=== PATIENT | female | born 1960 | race Caucasian/White ===

== ENCOUNTER 2020-06-12 08:36 | Outpatient (REF) | payer OTHER, SELFPAY ==
--- NOTE | 2020-06-12 08:41 | MM_ITS ---
EXAMINATION: MM SCREENING DIGITAL BREAST TOMOSYNTHESIS, BILATERAL CLINICAL INFORMATION: Screening. Asymptomatic. No prior breast surgery. The lifetime risk of breast cancer based on the Tyrer-Cuzick Model is 6%. COMPARISON: Mammography: 10/14/2018, 08/24/2017, 08/03/2016, 07/31/2015, 03/16/2014, 08/21/2011, 02/01/2011 TECHNIQUE: Digital breast tomosynthesis is performed in both the craniocaudal and mediolateral oblique views along with computer-aided detection (CAD). Synthesized 2D images are generated from the tomosynthesis. FINDINGS: There are scattered areas of fibroglandular density (ACR BI-RADS breast composition Category b). Parenchymal pattern is similar to multiple prior exams. There is stable parenchymal asymmetry mid outer left breast without developing density. Neither breast shows interval mass or architectural abnormality or abnormal calcifications. The axilla and skin contours are unremarkable. MM/MM tomosynthesis screening BI IMPRESSION: No significant changes from prior studies. ASSESSMENT: BI-RADS 2: Benign RECOMMENDATION: Routine annual mammography screening. This patient's information was entered into a reminder system with a target due date for their next mammogram.
== END 2020-06-12 08:37 | disposition home or self-care (01) ==
LOC: HO.MAMMO 08:36
PROVIDERS: PCP Internal Medicine; Visit Provider Internal Medicine
DX: Z12.31 Encounter for screening mammogram for malignant neoplasm of breast (principal)
CPT/HCPCS: 77063; 77067

== ENCOUNTER 2021-06-18 08:22 | Outpatient (REF) | payer OTHER, SELFPAY ==
--- NOTE | ~2021-06-18 | MM_ITS ---
EXAMINATION: MM SCREENING DIGITAL BREAST TOMOSYNTHESIS, BILATERAL CLINICAL INFORMATION: Screening. Asymptomatic. No known family history breast cancer. The lifetime risk of breast cancer based on the Tyrer-Cuzick Model is 5%. COMPARISON: Mammography: 06/12/2020, 10/14/2018, 08/24/2017, 08/03/2016, 07/31/2015, 03/16/2014, 02/08/2013, 08/21/2011. TECHNIQUE: Digital breast tomosynthesis is performed in both the craniocaudal and mediolateral oblique views along with computer-aided detection (CAD). Synthesized 2D images are generated from the tomosynthesis. FINDINGS: There are scattered areas of fibroglandular density (ACR BI-RADS breast composition Category b). Parenchymal pattern is similar to prior exams. Parenchymal asymmetry central upper outer left breast is similar to multiple prior studies. There is no developing density or interval mass or interval architectural change. No abnormal calcifications. The axilla and skin contours are unremarkable. No significant changes. MM/MM tomosynthesis screening BI IMPRESSION: No significant changes from prior studies. ASSESSMENT: BI-RADS 2: Benign RECOMMENDATION: Routine annual mammography screening. This patient's information was entered into a reminder system with a target due date for their next mammogram.
== END 2021-06-18 08:23 | disposition home or self-care (01) ==
LOC: HO.MAMMO 08:22
PROVIDERS: PCP Internal Medicine; Visit Provider Internal Medicine
DX: Z12.31 Encounter for screening mammogram for malignant neoplasm of breast (principal)
CPT/HCPCS: 77063; 77067

== ENCOUNTER 2022-06-24 09:35 | Outpatient (REF) | payer OTHER, SELFPAY ==
--- NOTE | ~2022-06-24 | MM_ITS ---
EXAMINATION: MM SCREENING DIGITAL BREAST TOMOSYNTHESIS, BILATERAL CLINICAL INFORMATION: Screening. Asymptomatic. The lifetime risk of breast cancer based on the Tyrer-Cuzick Model is 6%. COMPARISON: Mammography: 06/18/2021, 06/12/2020, 10/14/2018, 08/24/2017, 08/03/2016 TECHNIQUE: Digital breast tomosynthesis is performed in both the craniocaudal and mediolateral oblique views along with computer-aided detection (CAD). Synthesized 2D images are generated from the tomosynthesis. FINDINGS: There are scattered areas of fibroglandular density (ACR BI-RADS breast composition Category b). Parenchymal pattern is similar to prior studies. Parenchymal asymmetry mid upper outer left breast is similar to the prior exams. There is no interval mass or developing density or architectural changes. No abnormal calcific lesions. Skin contours are smooth. The axilla are unremarkable. MM/MM tomosynthesis screening BI IMPRESSION: No significant changes from prior exams. ASSESSMENT: BI-RADS 2: Benign RECOMMENDATION: Routine annual mammography screening. This patient's information was entered into a reminder system with a target due date for their next mammogram.
== END 2022-06-24 09:36 | disposition home or self-care (01) ==
LOC: HO.MAMMO 09:35
PROVIDERS: PCP Internal Medicine; Visit Provider Internal Medicine
DX: Z12.31 Encounter for screening mammogram for malignant neoplasm of breast (principal)
CPT/HCPCS: 77063; 77067

== ENCOUNTER 2023-05-11 09:42 | Day surgery (SDC) | payer OTHER, SELFPAY ==
[2023-05-09 14:13] VITALS: BMI 38.8
--- NOTE | 2023-05-10 12:21 | P.CONAN_ITS ---
Documented by User: Lori De La Rosa NP 05/10/23 12:22 HPI - Anesthesia Eval Consult details Narrative: 63yo F for Upper Endoscopy and Colonoscopy ASD s/p repair 1992 [facility] Past Medical History Medical History ASD (atrial septal defect) Elevated cholesterol HTN (hypertension) GERD (gastroesophageal reflux disease) Surgical History Surgical History Hx of atrial septal defect repair H/O colonoscopy Social History Social History Patient Tobacco Use Status: Former Tobacco user Quit Date: >5 years ago Tobacco use type: Cigarette Advance Directives: No Advance Directives Information Provided: Yes Meds Allergies Allergy/AdvReac Type Severity Reaction Status Date / Time No Known Allergies Allergy Verified 05/09/23 14:12 Home Medications Medication Instructions Recorded Confirmed Last Taken Type amlodipine 10 mg tablet 10 mg PO DAILY 05/09/23 05/09/23 Unknown History atorvastatin 40 mg tablet 40 mg PO BEDTIME 05/09/23 05/09/23 Unknown History fluticasone propionate 50 1 spray intranasal BID 05/09/23 05/09/23 Unknown History mcg/actuation nasal spray,suspension lisinopril 30 mg tablet 30 mg PO DAILY 05/09/23 05/09/23 Unknown History sertraline 50 mg tablet 50 mg PO DAILY 05/09/23 05/09/23 Unknown History Exam Height,Weight and Vital Signs: Height 5 ft 0.5 in Weight 91.626 kg Assessment and Plan Assessment Anesthesia Assessment: Chart Reviewed Documented by User: Josy Mayorga MD 05/11/23 10:14 [facility] Past Medical History Medical History ASD (atrial septal defect) Elevated cholesterol HTN (hypertension) GERD (gastroesophageal reflux disease) Family History Family history of problems with anesthesia: No Surgical History Surgical History Hx of atrial septal defect repair H/O colonoscopy History of Problems with Anesthesia: No Social History Social History Patient Tobacco Use Status: Former Tobacco user Quit Date: >5 years ago Tobacco use type: Cigarette Advance Directives: No Advance Directives Information Provided: Yes Meds Allergies Allergy/AdvReac Type Severity Reaction Status Date / Time No Known Allergies Allergy Verified 05/09/23 14:12 Home Medications Medication Instructions Recorded Confirmed Last Taken Type amlodipine 10 mg tablet 10 mg PO DAILY 05/09/23 05/09/23 Unknown History atorvastatin 40 mg tablet 40 mg PO BEDTIME 05/09/23 05/09/23 Unknown History fluticasone propionate 50 1 spray intranasal BID 05/09/23 05/09/23 Unknown History mcg/actuation nasal spray,suspension lisinopril 30 mg tablet 30 mg PO DAILY 05/09/23 05/09/23 Unknown History sertraline 50 mg tablet 50 mg PO DAILY 05/09/23 05/09/23 Unknown History Exam Airway Mallampati Class: II TM Dist: >3cm Neck ROM: Full Heart: rrr Lungs: cta Assessment and Plan Assessment Anesthesia Assessment: Anesthesia Plan Discussed Final Anesthetic Review Family History of Problems with Anesthesia: No History of Problems with Anesthesia: No NPO: Yes ASA Class: III Final Preanesthetic Review: No Changes in Pt Med Stat, Meds/Allgs Chart Reviewed, Consent Obtained/Reviewed and Anes Risks/Benef Reviewed Patient Risk: Intermediate Procedure Risk: Intermediate Anesthetic Plan Anesthetic Plan: MAC: Disposition: Standard PACU
[2023-05-11 10:15] VITALS: BP 113/73; PULSE 85; RESP 16; TEMP 36.6; O2SAT 97
[2023-05-11] MEDS: Lactated Ringers 1,000 ML 100 ML IVCONT (10:27)
--- NOTE | 2023-05-11 10:31 | P.HPSUR_ITS ---
Pre-Procedural Eval Section A Date of Service: 05/11/23 Section B Chief Complaint: Gastro-esophageal reflux disease without esophagit Details of Present Illness: see H&P no changes Relevant Family History (Specify if Yes): No Relevant Social History: None Present Medications: see Short Stay Collaborative assessment Medical History: No relevant PMH History of Previous Operations: No relevant previous surgery Allergies: Allergies Allergy/AdvReac Type Severity Reaction Status Date / Time No Known Allergies Allergy Verified 05/09/23 14:12 Review of Systems Sugical H&P ROS: Negative: Constitution, Cardiovascular, Respiratory, Neurol ogical, Psychiatric, Hem-Onc, Allergic/Immunologic, Gastrointestinal, Genitourinary, Musculoskeletal, Integumentary, Endocrine and Eyes/Ears/Nose/Throat Exam Surgical H&P Exam: Normal: HEENT, Normal: Heart, Normal: Lungs, Normal: Extremities, Normal: Abdomen, Normal: Skin and Normal: Neurological Plan Diagnosis/Plan: Unchanged I have reviewed the history and physical and performed a pertinent physical examination on my patient. No changes have occurred unless specified. Time Spent With Patient Time: Total time managing care of this patient today ____ minutes.
[2023-05-11 11:18] VITALS: BP 95/58; PULSE 73; RESP 18; TEMP 36.3; O2SAT 98
[2023-05-11 11:33] VITALS: BP 123/69; PULSE 67; RESP 18; TEMP 36.8; O2SAT 98
--- NOTE | 2023-05-11 11:37 | OP_ITS ---
DATE OF SERVICE: 05/11/2023 SURGEON: Franklyn Browning MD INDICATIONS: 1. Gastroesophageal reflux disease. 2. Colon cancer screening. PREOPERATIVE DIAGNOSIS: POSTOPERATIVE DIAGNOSIS: PROCEDURE PERFORMED: Upper endoscopy with biopsy, colonoscopy to the cecum with biopsy and snare polypectomy. ESTIMATED BLOOD LOSS: COMPLICATIONS: ANESTHESIA: Monitored anesthesia care. ASSISTANTS: SPECIMENS: DESCRIPTION OF PROCEDURE: A history and physical was performed. The risks and benefits of the procedure were explained to the patient. Informed consent was obtained. The patient was placed in the left lateral decubitus position. The Olympus video gastroscope was introduced into the esophagus, stomach, and duodenum. Examination was performed. The scope was removed. She tolerated the procedure well and was repositioned for colonoscopy. Digital rectal exam was performed and was found to be normal. The Olympus pediatric video colonoscope was introduced into the rectum and advanced to the cecum. The cecum was identified by transillumination, palpation, and identification of ileocecal valve. Examination was performed. The scope was removed. She tolerated both procedures well and was returned to the recovery area in stable condition. FINDINGS: Upper endoscopy: 1. Esophagus: There was a 15 mm ulceration in the distal esophagus with some associated changes suspicious for Reyes's esophagus and some mild nodularity. Biopsies were obtained from the abnormal mucosa. There was a hiatal hernia. 2. Stomach: The stomach showed no evidence of masses, ulcers, or polyps. Antral biopsies were obtained to evaluate for H pylori. 3. Duodenal: Bulb and 2nd portion were normal. Colonoscopy: The terminal ileum was not examined. The visualized colonic mucosa was normal without evidence of masses or ulcers. At 60 cm, a less than 5 mm sessile polyp, which was removed with the biopsy forceps. At 40 cm was a 5 mm polyp, which was removed with a cold snare and recovered via suction. Retroflexed examination showed internal hemorrhoids. IMPRESSION: 1. Erosive esophagitis. 2. Hiatal hernia. 3. Colon polyps. RECOMMENDATION: Follow up the biopsy results. MD JOSE Amado/LEVON / [id number]
== END 2023-05-11 12:15 | disposition home or self-care (01) ==
PROVIDERS: PCP Internal Medicine; Visit Provider Internal Medicine Gastroenterology
PROC: (CPT 43239; principal; 2023-05-11 13:50)
DX: K22.10 Ulcer of esophagus without bleeding (principal); K44.9 Diaphragmatic hernia without obstruction or gangrene; K21.9 Gastro-esophageal reflux disease without esophagitis; Z12.11 Encounter for screening for malignant neoplasm of colon; K63.5 Polyp of colon; K64.8 Other hemorrhoids; I10 Essential (primary) hypertension; E78.5 Hyperlipidemia, unspecified; Z87.891 Personal history of nicotine dependence; Z79.02 Long term (current) use of antithrombotics/antiplatelets; Z79.899 Other long term (current) drug therapy
CPT/HCPCS: 43239; 45385; 45380; 88305; 88312; 88342; J2704

== ENCOUNTER 2023-06-30 09:32 | Outpatient (REF) | payer OTHER, SELFPAY ==
--- NOTE | ~2023-06-30 | MM_ITS ---
EXAMINATION: MM SCREENING DIGITAL BREAST TOMOSYNTHESIS, BILATERAL CLINICAL INFORMATION: Screening. Asymptomatic. COMPARISON: Mammography: This study is compared with prior exams dating back to 2017. TECHNIQUE: Digital breast tomosynthesis is performed in both the craniocaudal and mediolateral oblique views along with computer-aided detection (CAD). Synthesized 2D images are generated from the tomosynthesis. FINDINGS: There are scattered areas of fibroglandular density (ACR BI-RADS breast composition Category b). There is a focal asymmetry in the upper outer quadrant of the left breast. Additional mammographic and targeted sonographic evaluation of this finding are advised. In the right breast, there are no significant masses, abnormal calcifications, or other abnormalities. MM/MM tomosynthesis screening BI IMPRESSION: Focal asymmetry of the left breast upper outer quadrant warrants additional mammographic and targeted sonographic imaging. No mammographic signs of malignancy right breast. ASSESSMENT: BI-RADS BI-RADS 0 - Incomplete: Needs additional Imaging. RECOMMENDATION: 1. Additional views of the left breast 2. Targeted ultrasound if warranted after review of the additional views. 3. Radiology department staff will contact the patient for additional imaging. Additional Imaging required This examination should not preclude the clinical evaluation of a suspicious palpable abnormality. This patient's information was entered into a reminder system with a target due date for their next mammogram.
== END 2023-06-30 09:33 | disposition home or self-care (01) ==
LOC: HO.MAMMO 09:32
PROVIDERS: PCP Internal Medicine; Visit Provider Internal Medicine
DX: Z12.31 Encounter for screening mammogram for malignant neoplasm of breast (principal)
CPT/HCPCS: 77063; 77067

== ENCOUNTER → 2023-06-30 09:45 | Outpatient (BNV) | payer OTHER, SELFPAY | PROVIDERS: PCP Internal Medicine; Visit Provider Radiology Diagnostic Radiology | DX: Z12.31 Encounter for screening mammogram for malignant neoplasm of breast (principal) | CPT/HCPCS: 77063; 77067 ==

== ENCOUNTER 2023-08-17 14:19 | Outpatient (REF) | payer OTHER, SELFPAY ==
--- NOTE | ~2023-08-17 | MM_ITS ---
EXAMINATION: MM DIAGNOSTIC DIGITAL BREAST TOMOSYNTHESIS, LEFT CLINICAL INFORMATION: Evaluate focal asymmetry left breast upper outer quadrant seen on screening exam. COMPARISON: Mammography: 06/30/2023, 06/16/2022, 06/18/2021, and exams dating back to 02/01/2011. TECHNIQUE: Digital breast tomosynthesis is performed. 2D images are generated from the tomosynthesis. The following views are obtained: Full-field left views obtained. 3-D mediolateral view, and spot compression 3-D left CC x2, and left MLO x1. FINDINGS: There are scattered areas of fibroglandular density (ACR BI-RADS breast composition Category b). Additional diagnostic views show mild persistence of the focal asymmetry, as does the full-field left mediolateral view. Of note, when compared with nearly every study dating back to 2010, there has been no change in this focal asymmetry, and it has been worked up several times including in 2010, and 2020. This is a benign abnormality and no further follow-up is recommended. Otherwise, no suspicious calcifications, developing masses, or developing regions of architectural distortion are identified within the left breast. No skin or axillary abnormality identified. MM/MM tomosynthesis added views L IMPRESSION: No evidence of malignancy in the left breast. Focal asymmetry in the upper outer left breast is benign, and has been stable since 2011 exams. This is felt to represent a benign island of breast parenchyma. Recommend the patient return to routine annual screening to include both breasts. ASSESSMENT: BI-RADS BI-RADS 2 - Benign Findings RECOMMENDATION: 1 year F/U Results were provided to the patient at time of visit by the technologist. This patient's information was entered into a reminder system with a target due date for their next mammogram.
== END 2023-08-17 14:20 | disposition home or self-care (01) ==
LOC: HO.MAMMO 14:19
PROVIDERS: PCP Internal Medicine; Visit Provider Internal Medicine
DX: N64.89 Other specified disorders of breast (principal)
CPT/HCPCS: 77061; 77065

== ENCOUNTER → 2023-08-17 14:30 | Outpatient (BNV) | payer OTHER, SELFPAY | PROVIDERS: PCP Internal Medicine; Visit Provider Radiology Diagnostic Radiology | DX: N64.2 Atrophy of breast (principal) | CPT/HCPCS: 77061; 77065 ==

== ENCOUNTER 2024-05-15 11:06 | Outpatient (REF) | payer OTHER, SELFPAY ==
--- OUTSIDE RECORDS SUMMARY | 2024-05-16 11:19 | XMS_ITS | Patient Health Record ---
Author Organization [facility] Address [address] [place] [address] Care Team Providers Care Benzene Operator Name Role Phone Racheal Ponce Primary Care [...] HCl 50 MG TAKE 1 TABLET BY [facility] ONCE DAILY Oral for 90 Active Omeprazole [...] Problem Colon cancer screening (Z12.11) Active confirmed [id number] Problem Erosive esophagitis (K22.10) Active confirmed Erosive esophagitis (51670563) Problem Gastroesophageal reflux disease, unspecified whether esophagitis present (K21.9) Active confirmed [id number] Encounters Encounter Location Date Provider Diagnosis [facility] [place] Outpatient [address] [place], [place] [phone] 08/17/2023 Franklyn Browning Jr [facility] [address] [place] [address] 05/16/2023 Franklyn Browning Jr [facility] [address] [place] [address] 06/18/2023 Franklyn Browning Jr PLAN OF TREATMENT Future Test Test Name Order Date COLONOSCOPY 12/11/2012 UPPER GI ENDOSCOPY ANY OTHER TECHNIQUE 1 06/05/2022 COLONOSCOPY 04/05/2023 Insurance Providers Payer Name Payer Address Payer Phone Subscriber Number Group Number Insured Name Patient Relationship to Insured Coverage Start Date Coverage End Date [facility] [address] [place] [phone] [id number] KYREE MCKENNA Self - patient is the insured MEDICAL (GENERAL) HISTORY Medical History History ICD Code Hypertension Hyperlipidemia Gastroesophageal reflux disease Colonoscopy 02/07 hyperplastic polyp, ten -year followup. Surgical History Surgery Date(Month/Year) repair of septal defect (? ASD) 1992 knee replacement left
--- OUTSIDE RECORDS SUMMARY | 2024-05-16 11:19 | XMS_ITS ---
Author Organization [facility] Address [address] [place] [address] Care Team Providers Care Client Advisor Name Role Phone Racheal Ponce Primary Care Provider Unavailab Franklyn Anand Jr Unavailable [phone] Encounters Encounter Location Date Provider Diagnosis [facility] Outpatient [address] [place] [phone] 08/17/2023 Franklyn Browning Jr PLAN OF TREATMENT No Information
--- OUTSIDE RECORDS SUMMARY | 2024-05-16 11:19 | XMS_ITS ---
Author Organization [facility] Address [address] [place] [address] Care Team Providers Care Air Analyst Name Role Phone Racheal Ponce Primary Care Provider Unavailab Franklyn Anand Jr Unavailable REASON FOR VISIT pathology Encounters Encounter Location Date Provider Diagnosis [facility] [address] [place] [phone] 05/16/2023 Franklyn Browning Jr PLAN OF TREATMENT No Information
--- OUTSIDE RECORDS SUMMARY | 2024-05-16 11:19 | XMS_ITS ---
Author Organization [facility] Address [address] [place] [address] Care Team Providers Care Cover Creaser Name Role Phone Racheal Ponce Primary Care Provider Unavailab Franklyn Anand Jr Unavailable [phone] REASON FOR VISIT cancel procedure Encounters Encounter Location Date Provider Diagnosis [facility] [address] [place] [address] 06/18/2023 Franklyn Browning Jr PLAN OF TREATMENT No Information
== END 2024-05-15 11:07 | disposition home or self-care (01) ==
LOC: HO.HOSX 11:06
PROVIDERS: Visit Provider Orthopaedic Surgery
DX: M25.512 Pain in left shoulder (principal); M75.42 Impingement syndrome of left shoulder
CPT/HCPCS: 20610; 73030; J1010; J2003

== ENCOUNTER 2024-05-15 13:50 | Outpatient (AMB) | payer OTHER, SELFPAY ==
--- OUTSIDE RECORDS SUMMARY | 2024-05-15 13:52 | XMS_ITS ---
Author Organization [facility] Address [address] [place] [phone] Care Team Providers Care Repairer Wood Furniture Name Role Phone Racheal Ponce Primary Care Provider Unavailab Franklyn Anand Jr Unavailable [phone] REASON FOR VISIT pathology Encounters Encounter Location Date Provider Diagnosis [facility] [address] [place] [phone] 05/16/2023 Franklyn Browning Jr PLAN OF TREATMENT No Information
--- OUTSIDE RECORDS SUMMARY | 2024-05-15 13:52 | XMS_ITS ---
Author Organization [facility] Address [address] [place] [phone] Care Team Providers Care Territory Account Executive Name Role Phone Racheal Ponce Primary Care Provider Unavailab Franklyn Anand Jr Unavailable [phone] Encounters Encounter Location Date Provider Diagnosis [facility] Out[place] [address] [place] [phone] 08/17/2023 Franklyn Browning Jr PLAN OF TREATMENT No Information
--- OUTSIDE RECORDS SUMMARY | 2024-05-15 13:52 | XMS_ITS | Patient Health Record ---
Author Organization [facility] Address [address] [place] [phone] Care Team Providers Care Raw Stock Machine Feeder Name Role Phone Racheal Ponce Primary Care Provider UnavailFranklyn Lane Jr Unavailable ALLERGIES No Known Allergies REASON FOR REFERRAL No Information MEDICATIONS Medication SIG (Take, Route, Frequency, Duration) Notes Start Date End Date Status Flonase 50 MCG/DOSE 1 spray in each nost ril Nasally Once a day for 30 day(s) Active amLODIPine Besylate 5mg Active MiraLax (colon prep) 17 GM/SCOOP mixed with Gatorade or Crystal Light Orally begin at 5:00 p.m. the day before the procedure for 1 day 04/05/2023 Active Lisinopril 30 MG Oral for 90 A ctive Atorvastatin Calcium 40mg Active Sertraline HCl 50 MG TAKE 1 TABLET BY [facility] ONCE DAILY Oral for 90 Active Omeprazole 20 MG 1 capsule 30 minutes before morning meal Orally Once a day for 30 day(s) 05/11/2023 Active SOCIAL HISTORY Tobacco Use: Social History Observation Description Date Details (start date - stop date) Former Smoker NA - NA Sex Assigned At : Social History Observation Description Sex Assigned At Unknown Tobacco Use/Smoking Question Answer Notes Patient is a former smoker How long has it been since you last smoked? 5-10 years PROBLEMS Problem Type ICD Code Onset Dates Problem Status W/U Status Risk SNOMED Code Notes Problem Colon cancer screening (Z12.11) Active confirmed 816133755 Problem Erosive esophagitis (K22.10) Active confirmed Erosive esophagitis (90493675) Problem Gastroesophageal reflux disease, unspecified whether esophagitis present (K21.9) Active confirmed [id number] Encounters Encounter Location Date Provider Diagnosis [facility] [place] [address] [place] [phone] 08/17/2023 Franklyn Browning Jr [facility] [address] [place] [phone] 05/16/2023 Franklyn Browning Jr [facility] [address] [place] [phone] 06/18/2023 Franklyn Browning Jr PLAN OF TREATMENT Future Test Test Name Order Date COLONOSCOPY 12/11/2012 UPPER GI ENDOSCOPY ANY OTHER TECHNIQUE 1 06/05/2022 COLONOSCOPY 04/05/2023 Insurance Providers Payer Name Payer Address Payer Phone Subscriber Number Group Number Insured Name Patient Relationship to Insured Coverage Start Date Coverage End Date [facility] [address] [place] [phone] [id number] KYREE MCKENNA Self - patient is the insured MEDICAL (GENERAL) HISTORY Medical History History ICD Code Hypertension Hyperlipidemia Gastroesophageal reflux disease Colonoscopy 02/07 hyperplastic polyp, ten -year followup. Surgical History Surgery Date(Month/Year) repair of septal defect (? ASD) 1992 knee replacement left
--- OUTSIDE RECORDS SUMMARY | 2024-05-15 13:52 | XMS_ITS ---
Author Organization [facility] Address [address] [place] [phone] Care Team Providers Care Studio Data Analyst Name Role Phone Racheal Ponce Primary Care Provider Unavailab Franklyn Anand Jr Unavailable [phone] REASON FOR VISIT cancel procedure Encounters Encounter Location Date Provider Diagnosis [facility] [address] [place] [phone] 06/18/2023 Franklyn Browning Jr PLAN OF TREATMENT No Information
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
[2024-05-15 14:03] VITALS: BMI 38.8
== END 2024-05-15 14:40 | disposition home or self-care (01) ==
PROVIDERS: PCP Internal Medicine; Visit Provider Orthopaedic Surgery
DX: M75.42 Impingement syndrome of left shoulder (principal)
CPT/HCPCS: 20610; 99203

== ENCOUNTER 2024-07-24 14:36 | Outpatient (AMB) | payer OTHER, SELFPAY ==
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
[2024-07-24 14:42] VITALS: BMI 38.6
--- OUTSIDE RECORDS SUMMARY | 2024-07-24 17:53 | XMS_ITS ---
Author Organization [facility] Address [address] [place] [address] Care Team Providers Care Rehabilitation Coordinator Name Role Phone Racheal Ponce Primary Care Provider Unavailab Franklyn Anand Jr Unavailable [phone] REASON FOR VISIT pathology Encounters Encounter Location Date Provider Diagnosis [facility] [address] [place] [phone] 05/16/2023 Franklyn Browning Jr PLAN OF TREATMENT No Information
--- OUTSIDE RECORDS SUMMARY | 2024-07-24 17:53 | XMS_ITS ---
Author Organization [facility] Address [address] [place] [address] Care Team Providers Care Director Correctional [employer] Name Role Phone Racheal Ponce Primary Care Provider Unavailab Franklyn Anand Jr Unavailable REASON FOR VISIT cancel procedure Encounters Encounter Location Date Provider Diagnosis [facility] [address] [place] [phone] 06/18/2023 Franklyn Browning Jr PLAN OF TREATMENT No Information
--- OUTSIDE RECORDS SUMMARY | 2024-07-24 17:53 | XMS_ITS ---
Author Organization [facility] Address [address] [place] [address] Care Team Providers Care Scalder Name Role Phone Racheal Ponce Primary Care Provider Unavailab Franklyn Anand Jr Unavailable Encounters Encounter Location Date Provider Diagnosis [facility] Outpatient [address] [place] [phone] 08/17/2023 Franklyn Browning Jr PLAN OF TREATMENT No Information
--- OUTSIDE RECORDS SUMMARY | 2024-07-24 17:53 | XMS_ITS | Patient Health Record ---
Author Organization [facility] Address [address] [place] [address] Care Team Providers Care Band Sawing Machine Operator Name Role Phone Racheal Ponce Primary [...] HCl 50 MG TAKE 1 TABLET BY [facility] ONCE DAILY Oral for 90 [...] Problem Colon cancer screening (Z12.11) Active confirmed [id number] Problem Erosive esophagitis (K22.10) Active confirmed Erosive esophagitis (67495530) Problem Gastroesophageal reflux disease, unspecified whether esophagitis present (K21.9) Active confirmed 780059397 Encounters Encounter Location Date Provider Diagnosis [facility] [place] [address] [place], [place] [phone] 08/17/2023 Franklyn Browning Jr PLAN OF TREATMENT Future Test Test Name Order Date COLONOSCOPY 12/11/2012 UPPER GI ENDOSCOPY ANY OTHER TECHNIQUE 1 06/05/2022 COLONOSCOPY 04/05/2023 Insurance Providers Payer Name Payer Address Payer Phone Subscriber Number Group Number Insured Name Patient Relationship to Insured Coverage Start Date Coverage End Date [facility] [address] [place] [phone] [id number] KYREE MCKENNA Self - patient is the insured MEDICAL (GENERAL) HISTORY Medical History History ICD Code Hypertension Hyperlipidemia Gastroesophageal reflux disease Colonoscopy 02/07 hyperplastic polyp, ten -year followup. Surgical History Surgery Date(Month/Year) repair of septal defect (? ASD) 1992 knee replacement left
--- OUTSIDE RECORDS SUMMARY | 2024-07-24 17:53 | XMS_ITS | Clinical Summary ---
Author Organization [address] Address [address] [place] [address] Phone Care Team Providers Care Electrician Office Name Role Phone Racheal Ponce MD Primary Care Provider [phone] Social History Tobacco Use Types Packs/Day Years Used Date Smoking Tobacco: Never Assessed Comments Unknown Sex and Gender Information Value Date Recorded Sex Assigned at Not on file Legal Sex Female 5:55 AM EST Gender Identity Not on file Sexual Orientation Not on file Plan of Treatment Health Maintenance Due Date Last Done Comments Breast Cancer Screening 1960 Cervical Cancer Screening: Pap Smear 1983 Pneumococcal Vaccine: 50+ Years (1 of 1 - PCV) 2012 Colorectal Cancer Screening: Colonoscopy 04/30/2022 Depression Screening 04/30/2022 HIV Screening 04/30/2022 Hepatitis C Screening 04/30/2022 Social Influencers of Health Screening 04/30/2022 COVID-19 Vaccine ( season) 2024 06/20/2023, 06/02/2021, 02/23/2021, Additional history exists Influenza Vaccine (#1) 2024 , 03/16/2021, 02/25/2018 Hypertension/CHF/CAD Annual BMP Blood Test 2025 2024 Cholesterol Screening (Lipid Panel) 2029 2024 DTaP,Tdap,and Td Vaccines (2 - Td or Tdap) 06/30/2032 06/30/2022 Zoster Vaccines Completed 12/16/2021, 10/15/2021 RSV Immunization Patients 60+ Years Old Completed 06/20/2023 HIB Vaccines Aged Out No longer eligi ble based on patient's age to complete this topic HPV Vaccines Aged Out No longer eligi ble based on patient's age to complete this topic Hepatitis A Vaccines Aged Out No long er eligible based on patient's age to complete this topic Hepatitis B Vaccines Aged Out No long er eligible based on patient's age to complete this topic IPV Vaccines Aged Out No longer eligi ble based on patient's age to complete this topic MMR Vaccines Aged Out No longer eligi ble based on patient's age to complete this topic Meningococcal ACWY Vaccine Aged Out N o longer eligible based on patient's age to complete this topic Meningococcal B Vacine Aged Out No lo nger eligible based on patient's age to complete this topic Pneumococcal Vaccine: Pediatrics (0 to 5 Years) and At-Risk Patients (6 to 64 Years) Aged Out No longer eligible based on patient's age to complete this topic RSV Immunization Patients Under 20 months Aged Out No longer eligible based on patient's age to complete this topic Varicella Vaccines Aged Out No longer eligible based on patient's age to complete this topic Procedures Procedure Name Priority Date/Time Associated Diagnosis Comments CBC WITH AUTO DIFFERENTIAL Routine 2024 9:45 AM EST Pure hypercholesterolemi a Major depressive disorder, 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 (CMS/HCC) Hypertension, unspecified type LIPID PANEL WITH REFLEX TO DIRECT LDL Routine 2024 9:45 AM EST Pure hypercholesterolemi a Major depressive disorder, 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 (CMS/HCC) Hypertension, unspecified type COMPREHENSIVE METABOLIC PANEL Routine 2024 9:45 AM EST Pure hypercholesterolemi a Major depressive disorder, 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 (CMS/HCC) Hypertension, unspecified type CBC AND DIFFERENTIAL Routine 2024 9:45 AM EST Pure hypercholesterolemi a Major depressive disorder, 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 (CMS/HCC) Hypertension, unspecified type from Last 3 Months Results * Lipid panel with reflex to direct LDL (2024 9:45 AM EST) [facility] Signature Cholesterol 196 0 - 200 mg/dL LAB CHEMISTRY METHOD 2024 2:44 PM EST [facility] Triglycerides 64 0 - 150 mg/dL LAB CHEMISTRY METHOD 2024 2:44 PM EST [facility] HDL 99 >=40 mg/dL LAB CHEMISTRY METHOD 2024 2:44 PM [facility] LDL Calculated 84 0 - 100 mg/dL LAB CHEMISTRY METHOD 2024 2:44 PM EST [facility] VLDL Cholesterol David 12.8 mg/dL LAB CHEMISTRY METHOD 2024 2:44 PM [facility] Non HDL Chol. (LDL+VLDL) 97 <145 mg/dL LAB CHEMISTRY METHOD 2024 2:44 PM [facility] Chol/HDL Ratio 2.0 0.0 - 4.4 LAB CHEMISTRY METHOD 2024 2:44 PM [facility] Blood Venous blood specimen / Unknown Venipuncture / Unknown 2024 9:45 AM EST 2024 9:45 AM EST us Racheal Ponce MD LAB BLOOD ORDERABLES Final Re sult [facility] [address] [place] [address], [place] [phone] * (ABNORMAL) CBC auto differential (2024 9:45 AM EST) WBC 4.3(L) 4.8 - 10.8 K/mcL LAB HEMETOLOGY METHOD 2024 2:20 PM EST [facility] RBC 4.40 3.80 - 4.80 M/mcL LAB HEMETOLOGY METHOD 2024 2:20 PM [facility] Hemoglobin 12.9 11.5 - 16.0 g/dL LAB HEMETOLOGY METHOD 2024 2:20 PM [facility] Hematocrit 40.5 35.0 - 47.0 % LAB HEMETOLOGY METHOD 2024 2:20 PM [facility] MCV 92.0 79.0 - 98.0 FL LAB HEMETOLOGY METHOD 2024 2:20 PM [facility] MCH 29.3 27.0 - 32.0 pcg LAB HEMETOLOGY METHOD 2024 2:20 PM [facility] MCHC 31.9(L) 32.0 - 37.0 g/dL LAB HEMETOLOGY METHOD 2024 2:20 PM [facility] RDW 14.0 11.0 - 15.0 % LAB HEMETOLOGY METHOD 2024 2:20 PM [facility] Platelets 309 130 - 400 K/mcL LAB HEMETOLOGY METHOD 2024 2:20 PM [facility] MPV 10.5 7.0 - 11.0 FL LAB HEMETOLOGY METHOD 2024 2:20 PM [facility] NRBC 0.0 <1.0 % LAB HEMETOLOGY METHOD 2024 2:20 PM [facility] NRBC Absolute 0.00 <0.10 K/mcL LAB HEMETOLOGY METHOD 2024 2:20 PM [facility] Neutrophils Relative 56.0 % LAB HEMETOLOGY METHOD 2024 2:20 PM [facility] Lymphocytes Relative 26.9 % LAB HEMETOLOGY METHOD 2024 2:20 PM [facility] Monocytes Relative 11.0 % LAB HEMETOLOGY METHOD 2024 2:20 PM [facility] Eosinophils Relative 4.7 % LAB HEMETOLOGY METHOD 2024 2:20 PM [facility] Basophils Relative 0.9 % LAB HEMETOLOGY METHOD 2024 2:20 PM EST [facility] Immature Granulocytes Relative 0.5 % LAB HEMETOLOGY METHOD 2024 2:20 PM EST [facility] Neutrophils Absolute 2.40 1.50 - 7.00 K/mcL LAB HEMETOLOGY METHOD 2024 2:20 PM EST [facility] Lymphocytes Absolute 1.15 1.00 - 5.00 K/mcL LAB HEMETOLOGY METHOD 2024 2:20 PM EST [facility] Monocytes Absolute 0.47 0.20 - 1.00 K/mcL LAB HEMETOLOGY METHOD 2024 2:20 PM EST [facility] Eosinophils Absolute 0.20 0.00 - 0.50 K/mcL LAB HEMETOLOGY METHOD 2024 2:20 PM EST [facility] Basophils Absolute 0.04 0.00 - 0.20 K/mcL LAB HEMETOLOGY METHOD 2024 2:20 PM EST [facility] Immature Granulocytes Absolute 0.02 0.00 - 0.03 K/mcL LAB HEMETOLOGY METHOD 2024 2:20 PM EST [facility] Blood Venous blood specimen / Unknown Venipuncture / Unknown 2024 9:45 AM EST 2024 9:45 AM EST us Racheal Ponce MD LAB BLOOD ORDERABLES Final Re sult [facility] [address] [place] [address], * Comprehensive metabolic panel (2024 9:45 AM EST) Sodium 137 133 - 145 mmol/L LAB CHEMISTRY METHOD 2024 2:43 PM [facility] Potassium 4.5 3.5 - 5.5 mmol/L LAB CHEMISTRY METHOD 2024 2:43 PM [facility] Chloride 106 96 - 110 mmol/L LAB CHEMISTRY METHOD 2024 2:43 PM [facility] CO2 26 21 - 32 mmol/L LAB CHEMISTRY METHOD 2024 2:43 PM [facility] Anion Gap 5 3 - 11 LAB CHEMISTRY METHOD 2024 2:43 PM [facility] Glucose 95 70 - 100 mg/dL LAB CHEMISTRY METHOD 2024 2:43 PM [facility] BUN 24 5 - 25 mg/dL LAB CHEMISTRY METHOD 2024 2:43 PM [facility] Creatinine 0.76 0.50 - 1.10 mg/dL LAB CHEMISTRY METHOD 2024 2:43 PM [facility] eGFR 89 >=60 mL/min/1. 73m2 LAB CHEMISTRY METHOD 2024 2:43 PM [facility] Comment:Calculation based on the??Chronic Kidney Disease Epidemiology Collaboration (CKD-EPI) equation refit??without adjustment for race. BUN/Creatinine Ratio 31.6 LAB CHEMISTRY METHOD 2024 2:43 PM [facility] Calcium 9.8 8.5 - 10.5 mg/dL LAB CHEMISTRY METHOD 2024 2:43 PM [facility] AST (SGOT) 14 10 - 42 unit/L LAB CHEMISTRY METHOD 2024 2:43 PM [facility] ALT (SGPT) 19 10 - 60 unit/L LAB CHEMISTRY METHOD 2024 2:43 PM [facility] Alkaline Phosphatase 89 42 - 121 unit/L LAB CHEMISTRY METHOD 2024 2:43 PM [facility] Total Protein 7.1 6.0 - 8.0 g/dL LAB CHEMISTRY METHOD 2024 2:43 PM EST [facility] Albumin 4.0 3.2 - 5.0 g/dL LAB CHEMISTRY METHOD 2024 2:43 PM EST [facility] Total Bilirubin 0.4 0.0 - 1.4 mg/dL LAB CHEMISTRY METHOD 2024 2:43 PM EST [facility] Blood Venous blood specimen / Unknown Venipuncture / Unknown 2024 9:45 AM EST 2024 9:45 AM EST us Racheal Ponce MD LAB BLOOD ORDERABLES Final Re sult [facility] [address] [place] [address], from Last 3 Months Insurance [facility] Advance Directives Documents on File Type Date Recorded Patient Animal Husbandry Technician Expl anation Health Care Decision (hx) 10/19/2023 PO LST FORM Care Teams Electrician Office Relationship Specialty Start Date End Date Racheal Ponce MD [address] [place] [address] [place] [address] PCP - General Internal Medicine 06/24/24
== END 2024-07-24 14:49 | disposition home or self-care (01) ==
PROVIDERS: PCP Internal Medicine; Visit Provider Orthopaedic Surgery
DX: M25.312 Other instability, left shoulder (principal)
CPT/HCPCS: 99213

== ENCOUNTER → 2024-07-24 14:36 | Outpatient (BNVA) | payer OTHER, SELFPAY | PROVIDERS: PCP Internal Medicine; Visit Provider Orthopaedic Surgery ==

== ENCOUNTER 2024-08-10 08:38 | Outpatient (REF) | payer OTHER, SELFPAY | END 2024-08-10 08:39 | disposition home or self-care (01) | LOC: HO.MRI 08:38 | PROVIDERS: PCP Internal Medicine; Visit Provider Orthopaedic Surgery | DX: M25.312 Other instability, left shoulder (principal) | CPT/HCPCS: 73221 ==

== ENCOUNTER → 2024-08-10 08:47 | Outpatient (BNV) | payer OTHER, SELFPAY | PROVIDERS: PCP Internal Medicine; Visit Provider Radiology Diagnostic Radiology | DX: M25.412 Effusion, left shoulder (principal); M65.812 Other synovitis and tenosynovitis, left shoulder; M75.52 Bursitis of left shoulder; M75.112 Incomplete rotator cuff tear or rupture of left shoulder, not specified as traumatic | CPT/HCPCS: 73221 ==

== ENCOUNTER 2024-08-18 15:46 | Outpatient (REF) | payer OTHER, SELFPAY ==
--- OUTSIDE RECORDS SUMMARY | 2024-08-18 18:32 | XMS_ITS ---
Author Organization [facility] Address [address] [place] [phone] Care Team Providers Care Face Hardener Name Role Phone Kris Racheal Primary Care Provider Unavailab Franklyn Anand Jr Unavailable REASON FOR VISIT pathology Encounters Encounter Location Date Provider Diagnosis [facility] [address] [place] [phone] 05/16/2023 Franklyn Browning Jr Plan Of Treatment No Information Progress Notes * KYREE MCKENNADOB:1960 ( 63 yo F)Acc No.[id number]:05/16/2023 Patient:?CLARISA KYREE :1960???Age:63 Y???Sex:Female Address:[address] [place] [address], [address] * true * Date:? Generated for Yaniv jackson/Urbano/eTransmitting on:?08/18/2024 06:32 PM EDT
--- OUTSIDE RECORDS SUMMARY | 2024-08-18 18:32 | XMS_ITS ---
Author Organization [facility] Address [address] [place] [phone] Care Team Providers Care Ecological Economist Name Role Phone Racheal Ponce Primary Care Provider Unavailab Franklyn Anand Jr Unavailable [phone] Encounters Encounter Location Date Provider Diagnosis [facility] [place] Outpatient [address] [place] [phone] 08/17/2023 Franklyn Browning Jr Plan Of Treatment No Information Progress Notes * KYREE MCKENNADOB:1960 ( 64 yo F)Acc No.[id number]:08/17/2023 EGD/MAC Patient:?KYREE MCKENNA Provider:?Franklyn Browning MD :1960???Age:63 Y???Sex:Female D ate:08/17/2023 Address:[address] [place], [place] [phone] Pcp:Racheal Ponce Subjective: * Chief Complaints: * ??? * Medical History:? Objective: * Vitals:? Assessment: Plan: * Treatment: * * The named appointment provid er may or may not be the originator of this progress note, and it is not deemed complete until electronically signed by the appointment provider. Sign off status: Pending * Provider:?Franklyn Browning MD Date:?0 08/17/2023 Generated for Angelitai ng/Fajavierg/eTransmitting on:?08/18/2024 06:32 PM EDT
--- OUTSIDE RECORDS SUMMARY | 2024-08-18 18:32 | XMS_ITS | Patient Health Record ---
Author Organization [facility] Address [address] [place] [address] Care Team Providers Care Baking Assistant Name Role Phone Racheal Ponce Primary Care Provider UnavailFranklyn Lane Jr Unavailable [phone] Allergies No Known Allergies Reason For Referral No Information Medications Medication SIG (Take, Route, Frequency, Duration) Notes [...] HCl 50 MG TAKE 1 TABLET BY [facility] ONCE DAILY Oral for 90 Active Omeprazole 20 MG 1 capsule 30 minutes before morning meal Orally Once a day for 30 day(s) 05/11/2023 Active Social History Tobacco Use: Social History Observation Description Date Details (start date - stop date) Former Smoker NA - NA Tobacco Use/Smoking Question Answer Notes Patient is a former smoker How long has it been since you last smoked? 5-10 years Problems Problem Type SNOMED Code ICD Code Onset Dates Problem Status W/U Status Risk Notes Problem [id number] Colon cancer screening (Z12.11) Active confirmed Problem Erosive esophagitis (17362421) Erosive esophagitis (K22.10) Active confirmed Problem 824275438 Gastroesophageal reflux disease, unspecified whether esophagitis present (K21.9) Active confirmed Plan Of Treatment Future Test Test Name Order Date COLONOSCOPY 12/11/2012 UPPER GI ENDOSCOPY ANY OTHER TECHNIQUE 1 06/05/2022 COLONOSCOPY 04/05/2023 Insurance Providers Payer Name Payer Address Payer Phone Subscriber Number Group Number Insured Name Patient Relationship to Insured Coverage Start Date Coverage End Date [facility] [address] [place] [phone] [id number] KYREE MCKENNA Self - patient is the insured Medical (General) History Medical History History ICD Code Hypertension Hyperlipidemia Gastroesophageal reflux disease Colonoscopy 02/07 hyperplastic polyp, ten -year followup. Surgical History Surgery Date(Month/Year) repair of septal defect (? ASD) 1992 knee replacement left
--- OUTSIDE RECORDS SUMMARY | 2024-08-18 18:32 | XMS_ITS ---
Author Organization [facility] Address [address] [place] [address] Care Team Providers Care Milking Machine Operator Name Role Phone Kris Racheal Primary Care Provider Unavailab Franklyn Anand Jr Unavailable REASON FOR VISIT cancel procedure Encounters Encounter Location Date Provider Diagnosis [facility] [address] [place] [phone] 06/18/2023 Franklyn Browning Jr Plan Of Treatment No Information Progress Notes * KYREE MCKENNADOB:1960 ( 63 yo F)Acc No.[id number]:06/18/2023 Patient:?GOLDIE MCKENNACY :1960???Age:63 Y???Sex:Female Address:[address] [place] [address], [address] * true * Date:? Generated for Yaniv jackson/Urbano/eTransmitting on:?08/18/2024 06:32 PM EDT
--- OUTSIDE RECORDS SUMMARY | 2024-08-18 18:32 | XMS_ITS | Clinical Summary ---
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 (CMS/HCC) Hypertension, unspecified type LIPID PANEL WITH REFLEX TO DIRECT LDL Routine 2024 9:45 AM EST Pure hypercholesterolemi a Major depressive disorder, 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 (CMS/HCC) Hypertension, unspecified type from Last 3 Months or Most Recently Relevant to Health Maintenance Results * Lipid panel with reflex to direct LDL (2024 9:45 AM EST) Cholesterol 196 0 - 200 mg/dL LAB CHEMISTRY METHOD 2024 2:44 PM EST [facility] Triglycerides 64 0 - 150 mg/dL LAB CHEMISTRY METHOD 2024 2:44 PM EST [facility] HDL 99 >=40 mg/dL LAB CHEMISTRY METHOD 2024 2:44 PM EST [facility] LDL Calculated 84 0 - 100 mg/dL LAB CHEMISTRY METHOD 2024 2:44 PM [facility] VLDL Cholesterol David 12.8 mg/dL LAB CHEMISTRY METHOD 2024 2:44 PM [facility] Non HDL Chol. (LDL+VLDL) 97 <145 mg/dL LAB CHEMISTRY METHOD 2024 2:44 PM [facility] Chol/HDL Ratio 2.0 0.0 - 4.4 LAB CHEMISTRY METHOD 2024 2:44 PM [facility] Blood Venous blood specimen / Unknown Venipuncture / Unknown 2024 9:45 AM EST 2024 9:45 AM EST us Racheal Ponce MD LAB BLOOD ORDERABLES Final Re sult [facility] [address] [place] [address], [place] [phone] * Comprehensive metabolic panel (2024 9:45 AM EST) Sodium 137 133 - 145 mmol/L LAB CHEMISTRY METHOD 2024 2:43 PM [facility] Potassium 4.5 3.5 - 5.5 mmol/L LAB CHEMISTRY METHOD 2024 2:43 PM [facility] Chloride 106 96 - 110 mmol/L LAB CHEMISTRY METHOD 2024 2:43 PM [facility] CO2 26 21 - 32 mmol/L LAB CHEMISTRY METHOD 2024 2:43 PM [facility] Anion Gap 5 3 - 11 LAB CHEMISTRY METHOD 2024 2:43 PM [facility] Glucose 95 70 - 100 mg/dL LAB CHEMISTRY METHOD 2024 2:43 PM [facility] BUN 24 5 - 25 mg/dL LAB CHEMISTRY METHOD 2024 2:43 PM [facility] Creatinine 0.76 0.50 - 1.10 mg/dL LAB CHEMISTRY METHOD 2024 2:43 PM [facility] eGFR 89 >=60 mL/min/1. 73m2 LAB CHEMISTRY METHOD 2024 2:43 PM [facility] Comment:Calculation based on the??Chronic Kidney Disease Epidemiology Collaboration (CKD-EPI) equation refit??without adjustment for race. BUN/Creatinine Ratio 31.6 LAB CHEMISTRY METHOD 2024 2:43 PM [facility] Calcium 9.8 8.5 - 10.5 mg/dL LAB CHEMISTRY METHOD 2024 2:43 PM [facility] AST (SGOT) 14 10 - 42 unit/L LAB CHEMISTRY METHOD 2024 2:43 PM [facility] ALT (SGPT) 19 10 - 60 unit/L LAB CHEMISTRY METHOD 2024 2:43 PM [facility] Alkaline Phosphatase 89 42 - 121 unit/L LAB CHEMISTRY METHOD 2024 2:43 PM [facility] Total Protein 7.1 6.0 - 8.0 g/dL LAB CHEMISTRY METHOD 2024 2:43 PM [facility] Albumin 4.0 3.2 - 5.0 g/dL LAB CHEMISTRY METHOD 2024 2:43 PM [facility] Total Bilirubin 0.4 0.0 - 1.4 mg/dL LAB CHEMISTRY METHOD 2024 2:43 PM [facility] Blood Venous blood specimen / Unknown Venipuncture / Unknown 2024 9:45 AM EST 2024 9:45 AM EST us Racheal Ponce MD LAB BLOOD ORDERABLES Final Re sult [facility] [address] [place] [address], from Last 3 Months or Most Recently Relevant to Health Maintenance Insurance [facility] Advance Directives Documents on File Type Date Recorded Patient Pulmonologist Intensivist Expl anation Health Care Decision (hx) 10/19/2023 PO LST FORM Care Teams Supervisor Inspecting Relationship Specialty Start Date End Date Racheal Ponce MD [address] [place] [address] [place] [address] PCP - General Internal Medicine 06/24/24
== END 2024-08-18 15:47 | disposition home or self-care (01) ==
LOC: HO.MAMMO 15:46
PROVIDERS: PCP Internal Medicine; Visit Provider Internal Medicine
DX: Z12.31 Encounter for screening mammogram for malignant neoplasm of breast (principal)
CPT/HCPCS: 77063; 77067

== ENCOUNTER → 2024-08-18 16:00 | Outpatient (BNV) | payer OTHER, SELFPAY | PROVIDERS: PCP Internal Medicine; Visit Provider Internal Medicine | DX: Z12.31 Encounter for screening mammogram for malignant neoplasm of breast (principal) | CPT/HCPCS: 77063; 77067 ==

== ENCOUNTER 2024-09-02 15:04 | Outpatient (AMB) | payer OTHER, SELFPAY ==
[2024-09-02 15:09] VITALS: BMI 39.2
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
--- OUTSIDE RECORDS SUMMARY | 2024-09-02 18:09 | XMS_ITS ---
Author Organization [facility] Address [address] [place] [address] Care Team Providers Care Tassel Clipper Name Role Phone Kris Racheal Primary Care Provider Unavailab Franklyn Anand Jr Unavailable [phone] REASON FOR VISIT pathology Encounters Encounter Location Date Provider Diagnosis [facility] [address] [place] [phone] 05/16/2023 Franklyn Browning Jr Plan Of Treatment No Information Progress Notes * KYREE MCKENNADOB:1960 ( 63 yo F)Acc No.[id number]:05/16/2023 Patient:?CLARISA KYREE :1960???Age:63 Y???Sex:Female Address:[address] [place] [address], [address] * true * Date:? Generated for Yaniv jackson/Urbano/eTransmitting on:?09/02/2024 06:09 PM EDT
--- OUTSIDE RECORDS SUMMARY | 2024-09-02 18:09 | XMS_ITS | Patient Health Record ---
Author Organization [facility] Address [address] [place] [address] Care Team Providers Care Customer Service Engineer Name Role Phone Racheal Ponce Primary Care Provider UnavailFranklyn Lane Jr Unavailable Allergies No Known Allergies Reason For Referral [...] HCl 50 MG TAKE 1 TABLET BY [facility] ONCE DAILY Oral for 90 Active Omeprazole [...] Problem Status W/U Status Risk Notes Problem 780570404 Colon cancer screening (Z12.11) Active confirmed Problem Erosive esophagitis (74425649) Erosive esophagitis (K22.10) Active confirmed Problem 263573076 Gastroesophageal reflux disease, unspecified whether esophagitis present (K21.9) Active confirmed Plan Of Treatment Future Test Test Name Order Date COLONOSCOPY 12/11/2012 UPPER GI ENDOSCOPY ANY OTHER TECHNIQUE 1 06/05/2022 COLONOSCOPY 04/05/2023 Insurance Providers Payer Name Payer Address Payer Phone Subscriber Number Group Number Insured Name Patient Relationship to Insured Coverage Start Date Coverage End Date [facility] [address] [place] [phone] [id number] KYREE MCKENNA Self - patient is the insured Medical (General) History Medical History History ICD Code Hypertension Hyperlipidemia Gastroesophageal reflux disease Colonoscopy 02/07 hyperplastic polyp, ten -year followup. Surgical History Surgery Date(Month/Year) repair of septal defect (? ASD) 1992 knee replacement left
--- OUTSIDE RECORDS SUMMARY | 2024-09-02 18:09 | XMS_ITS ---
Author Organization [facility] Address [address] [place] [address] Care Team Providers Care Production Control Pegboard Clerk Name Role Phone Prettyramiro Racheal Primary Care Provider Unavailab Franklyn Anand Jr Unavailable [phone] REASON FOR VISIT cancel procedure Encounters Encounter Location Date Provider Diagnosis [facility] [address] [place] [address] 06/18/2023 Franklyn Browning Jr Plan Of Treatment No Information Progress Notes * KYREE MCKENNADOB:1960 ( 63 yo F)Acc No.[id number]:06/18/2023 Patient:?GOLDIE MCKENNACY :1960???Age:63 Y???Sex:Female Address:[address] [place] [address], [address] * true * Date:? Generated for Yaniv jackson/Urbano/eTransmitting on:?09/02/2024 06:09 PM EDT
--- OUTSIDE RECORDS SUMMARY | 2024-09-02 18:09 | XMS_ITS | Clinical Summary ---
Author Organization [address] Address [address] [place] [address] Phone Care Team Providers Care Delivery Representative Name Role Phone Racheal Ponce MD Primary Care Provider [phone] Social History Tobacco Use Types Packs/Day Years [...] Zoster Vaccines Completed 12/16/2021, 10/15/2021 RSV Immunization Adult Patients Completed 06/20/2023 HIB Vaccines Aged Out No [...] age to complete this topic Meningococcal B Vaccine Aged Out No l onger eligible based on patient's age to complete [...] LAB CHEMISTRY METHOD 2024 2:44 PM EST [facility] Triglycerides 64 0 - 150 mg/dL LAB CHEMISTRY METHOD 2024 2:44 PM EST [facility] HDL 99 >=40 mg/dL LAB CHEMISTRY METHOD 2024 2:44 PM EST [facility] LDL Calculated 84 0 - 100 mg/dL LAB CHEMISTRY METHOD 2024 2:44 PM [facility] VLDL Cholesterol David 12.8 mg/dL LAB CHEMISTRY METHOD 2024 2:44 PM [facility] Non HDL Chol. (LDL+VLDL) 97 <145 mg/dL LAB CHEMISTRY METHOD 2024 2:44 PM [facility] Chol/HDL Ratio 2.0 0.0 - 4.4 LAB CHEMISTRY METHOD 2024 2:44 PM [facility] Blood Venous blood specimen / Unknown Venipuncture / Unknown 2024 9:45 AM EST 2024 9:45 AM EST us Racheal Ponce MD LAB BLOOD ORDERABLES Final Re sult [facility] [address] [place] [address], [place] [phone] * Comprehensive metabolic panel (2024 9:45 AM EST) Sodium 137 133 - 145 mmol/L LAB CHEMISTRY METHOD 2024 2:43 PM [facility] Potassium 4.5 3.5 - 5.5 mmol/L LAB CHEMISTRY METHOD 2024 2:43 PM [facility] Chloride 106 96 - 110 mmol/L LAB CHEMISTRY METHOD 2024 2:43 PM [facility] CO2 26 21 - 32 mmol/L LAB CHEMISTRY METHOD 2024 2:43 PM [facility] Anion Gap 5 3 - 11 LAB CHEMISTRY METHOD 2024 2:43 PM [facility] Glucose 95 70 - 100 mg/dL LAB CHEMISTRY METHOD 2024 2:43 PM [facility] BUN 24 5 - 25 mg/dL LAB CHEMISTRY METHOD 2024 2:43 PM [facility] Creatinine 0.76 0.50 - 1.10 mg/dL LAB CHEMISTRY METHOD 2024 2:43 PM [facility] eGFR 89 >=60 mL/min/1. 73m2 LAB CHEMISTRY METHOD 2024 2:43 PM [facility] Comment:Calculation based on the??Chronic Kidney Disease Epidemiology Collaboration (CKD-EPI) equation refit??without adjustment for race. BUN/Creatinine Ratio 31.6 LAB CHEMISTRY METHOD 2024 2:43 PM [facility] Calcium 9.8 8.5 - 10.5 mg/dL LAB CHEMISTRY METHOD 2024 2:43 PM [facility] AST (SGOT) 14 10 - 42 unit/L LAB CHEMISTRY METHOD 2024 2:43 PM [facility] ALT (SGPT) 19 10 - 60 unit/L LAB CHEMISTRY METHOD 2024 2:43 PM [facility] Alkaline Phosphatase 89 42 - 121 unit/L LAB CHEMISTRY METHOD 2024 2:43 PM [facility] Total Protein 7.1 6.0 - 8.0 g/dL LAB CHEMISTRY METHOD 2024 2:43 PM [facility] Albumin 4.0 3.2 - 5.0 g/dL LAB CHEMISTRY METHOD 2024 2:43 PM [facility] Total Bilirubin 0.4 0.0 - 1.4 mg/dL LAB CHEMISTRY METHOD 2024 2:43 PM [facility] Blood Venous blood specimen / Unknown Venipuncture / Unknown 2024 9:45 AM EST 2024 9:45 AM EST us Racheal Ponce MD LAB BLOOD ORDERABLES Final Re sult [facility] [address] [place] [address], from Last 3 Months or Most Recently Relevant to Health Maintenance Insurance [facility] [address] [place] [address] Advance Directives Documents on File Type Date Recorded Patient Hull And Deck Remover Expl anation Health Care Decision (hx) 10/19/2023 PO LST FORM Care Teams Delivery Representative Relationship Specialty Start Date End Date Racheal Ponce MD [address] [place] [address] [place] [address] PCP - General Internal Medicine 06/24/24
--- OUTSIDE RECORDS SUMMARY | 2024-09-02 18:09 | XMS_ITS ---
Author Organization [facility] Address [address] [place] [address] Care Team Providers Care Raw Stock Drier Tender Name Role Phone Racheal Ponce Primary Care Provider Unavailab Franklyn Anand Jr Unavailable [phone] Encounters Encounter Location Date Provider Diagnosis [facility] Outpatient [address] [place] [phone] 08/17/2023 Franklyn Browning Jr Plan Of Treatment No Information Progress Notes * KYREE MCKENNADOB:1960 ( 64 yo F)Acc No.[id number]:08/17/2023 EGD/MAC Patient:?KYREE MCKENNA Provider:?Franklyn Browning MD :1960???Age:63 Y???Sex:Female D ate:08/17/2023 Address:[address] [place] [phone] Pcp:Racheal Ponce Subjective: * Chief Complaints: * ??? * Medical History:? Objective: * Vitals:? Assessment: Plan: * Treatment: * * The named appointment provid er may or may not be the originator of this progress note, and it is not deemed complete until electronically signed by the appointment provider. Sign off status: Pending * Provider:?Franklyn Browning MD Date:?0 08/17/2023 Generated for Angelitai manuel/Fajavierg/eTransmitting on:?09/02/2024 06:09 PM EDT
== END 2024-09-02 15:25 | disposition home or self-care (01) ==
LOC: HO.HOS 15:05
PROVIDERS: PCP Internal Medicine; Visit Provider Orthopaedic Surgery
DX: M75.42 Impingement syndrome of left shoulder (principal)
CPT/HCPCS: 99213

== ENCOUNTER → 2024-09-02 15:04 | Outpatient (BNVA) | payer OTHER, SELFPAY | PROVIDERS: PCP Internal Medicine; Visit Provider Orthopaedic Surgery ==

== ENCOUNTER 2024-10-01 13:46 | Outpatient (REF) | payer OTHER, SELFPAY ==
--- NOTE | ~2024-10-01 | MM_ITS ---
EXAMINATION: MM DIAGNOSTIC DIGITAL BREAST TOMOSYNTHESIS, LEFT Limited left breast ultrasound. CLINICAL INFORMATION: Call back from screening for focal asymmetry in the upper-outer breast with associated architectural distortion. COMPARISON: Mammography: [facility] on PACS. TECHNIQUE: Digital breast tomosynthesis is performed in both the craniocaudal and mediolateral oblique views along with computer-aided detection (CAD). Synthesized 2D images are generated from the tomosynthesis. FINDINGS: There are scattered areas of fibroglandular density (ACR BI-RADS breast composition Category b). Focal asymmetry in the upper-outer breast with associated architectural distortion persist on additional imaging projections. No suspicious calcifications or other abnormal findings. Targeted color Doppler ultrasound scanning in the upper outer quadrant demonstrates normal fibroglandular breast tissue. There is an incidental simple minimally complicated cysts at 2:00 6 cm from nipple measuring 3 x 2 x 4 mm. MM/MM tomosynthesis added views L IMPRESSION: Focal asymmetry in the upper-outer breast with associated distortion without sonographic correlate. Recommend stereotactic core needle biopsy at this time. The findings and recommendations were discussed with the patient the procedure will be scheduled. ASSESSMENT: BI-RADS BI-RADS 4 - Suspicious finding RECOMMENDATION: Biopsy recommended Results were provided to the patient at time of visit by the technologist. This patient's information was entered into a reminder system with a target due date for their next mammogram. Electronically signed by: Ermelinda Dave DO 10/01/2024 02:37 PM EDT
--- OUTSIDE RECORDS SUMMARY | 2024-10-01 15:04 | XMS_ITS ---
Author Organization [facility] Address [address] [place] [address] Care Team Providers Care Office Administration Instructor Name Role Phone Racheal Ponce Primary Care Provider Unavailab Franklyn Anand Jr Unavailable Encounters Encounter Location Date Provider Diagnosis [facility] [address] [place] [phone] 08/17/2023 Franklyn Browning Jr Plan Of Treatment No Information Progress Notes * KYREE MCKENNADOB:1960 ( 64 yo F)Acc No.[id number]:08/17/2023 EGD/MAC Patient:?KYREE MCKENNA Provider:?Franklyn Browning MD :1960???Age:63 Y???Sex:Female D ate:08/17/2023 Address:[address] [place], [place] [phone] Pcp:Racheal Ponce Subjective: * Chief Complaints: * ??? * Medical History:? Objective: * Vitals:? Assessment: Plan: * Treatment: * * The named appointment provid er may or may not be the originator of this progress note, and it is not deemed complete until electronically signed by the appointment provider. Sign off status: Pending * Provider:?Franklyn Browning MD Date:?0 08/17/2023 Generated for Angelitai manuel/Fajavierg/eTransmitting on:?10/01/2024 03:04 PM EDT
--- OUTSIDE RECORDS SUMMARY | 2024-10-01 15:04 | XMS_ITS ---
Author Organization [facility] Address [address] [place] [address] Care Team Providers Care Gumming Machine Operator Name Role Phone Kris Racheal Primary Care Provider Unavailab Franklyn Anand Jr Unavailable [phone] REASON FOR VISIT cancel procedure Encounters Encounter Location Date Provider Diagnosis [facility] [address] [place] [address] 06/18/2023 Franklyn Browning Jr Plan Of Treatment No Information Progress Notes * KYREE MCKENNADOB:1960 ( 63 yo F)Acc No.[id number]:06/18/2023 Patient:?GOLDIE MCKENNACY :1960???Age:63 Y???Sex:Female Address:[address] [place] [address], [address] * true * Date:? Generated for Yaniv jackson/Urbano/eTransmitting on:?10/01/2024 03:03 PM EDT
--- OUTSIDE RECORDS SUMMARY | 2024-10-01 15:04 | XMS_ITS | Patient Health Record ---
Author Organization [facility] Address [address] [place] [address] Care Team Providers Care Powder Cutting Operator Name Role Phone Racheal Ponce Primary [...] HCl 50 MG TAKE 1 TABLET BY [facility] ONCE DAILY Oral for 90 Active [...] Problem Status W/U Status Risk Notes Problem 218752332 Colon cancer screening (Z12.11) Active confirmed Problem Erosive esophagitis (69887416) Erosive esophagitis (K22.10) Active confirmed Problem 071899563 Gastroesophageal reflux disease, unspecified whether esophagitis present (K21.9) Active confirmed Plan Of Treatment Future Test Test Name Order Date COLONOSCOPY 12/11/2012 UPPER GI ENDOSCOPY ANY OTHER TECHNIQUE 1 06/05/2022 COLONOSCOPY 04/05/2023 Insurance Providers Payer Name Payer Address Payer Phone Subscriber Number Group Number Insured Name Patient Relationship to Insured Coverage Start Date Coverage End Date [facility] [address] [place] [phone] [id number] KYREE MCKENNA Self - patient is the insured Medical (General) History Medical History History ICD Code Hypertension Hyperlipidemia Gastroesophageal reflux disease Colonoscopy 02/07 hyperplastic polyp, ten -year followup. Surgical History Surgery Date(Month/Year) repair of septal defect (? ASD) 1992 knee replacement left
--- OUTSIDE RECORDS SUMMARY | 2024-10-01 15:04 | XMS_ITS ---
Author Organization [facility] Address [address] [place] [phone] Care Team Providers Care Waffle Machine Operator Name Role Phone Kris Racheal Primary Care Provider Unavailab Franklyn Anand Jr Unavailable [phone] REASON FOR VISIT pathology Encounters Encounter Location Date Provider Diagnosis [facility] [address] [place] [phone] 05/16/2023 Franklyn Browning Jr Plan Of Treatment No Information Progress Notes * KYREE MCKENNADOB:1960 ( 63 yo F)Acc No.[id number]:05/16/2023 Patient:?CLARISA KYREE :1960???Age:63 Y???Sex:Female Address:[address] [place] [address], [address] * true * Date:? Generated for Yaniv jackson/Urbano/eTransmitting on:?10/01/2024 03:04 PM EDT
--- OUTSIDE RECORDS SUMMARY | 2024-10-01 15:04 | XMS_ITS | Clinical Summary ---
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 ([facility] V24) Hypertension, unspecified type LIPID PANEL WITH REFLEX TO DIRECT LDL Routine 2024 9:45 AM EST Pure hypercholesterolemi a Major depressive disorder, 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 ([facility] V24) Hypertension, unspecified type from Last 3 Months or Most Recently Relevant to Health Maintenance Results * Lipid panel with reflex to direct LDL (2024 9:45 AM EST) Cholesterol 196 0 - 200 mg/dL LAB CHEMISTRY METHOD 2024 2:44 PM EST [facility] Triglycerides 64 0 - 150 mg/dL LAB CHEMISTRY METHOD 2024 2:44 PM EST [facility] HDL 99 >=40 mg/dL LAB CHEMISTRY METHOD 2024 2:44 PM EST [facility] LDL Calculated 84 0 - 100 mg/dL LAB CHEMISTRY METHOD 2024 2:44 PM [facility] VLDL Cholesterol David 12.8 mg/dL LAB CHEMISTRY METHOD 2024 2:44 PM [facility] Non HDL Chol. (LDL+VLDL) 97 <145 mg/dL LAB CHEMISTRY METHOD 2024 2:44 PM [facility] Chol/HDL Ratio 2.0 0.0 - 4.4 LAB CHEMISTRY METHOD 2024 2:44 PM [facility] Blood Venous blood specimen / Unknown Venipuncture / Unknown 2024 9:45 AM EST 2024 9:45 AM EST us Racheal Ponce MD LAB BLOOD ORDERABLES Final Re sult [facility] [address] [place] [address], [place] [phone] * Comprehensive metabolic panel (2024 9:45 AM EST) Sodium 137 133 - 145 mmol/L LAB CHEMISTRY METHOD 2024 2:43 PM [facility] Potassium 4.5 3.5 - 5.5 mmol/L LAB CHEMISTRY METHOD 2024 2:43 PM [facility] Chloride 106 96 - 110 mmol/L LAB CHEMISTRY METHOD 2024 2:43 PM [facility] CO2 26 21 - 32 mmol/L LAB CHEMISTRY METHOD 2024 2:43 PM [facility] Anion Gap 5 3 - 11 LAB CHEMISTRY METHOD 2024 2:43 PM [facility] Glucose 95 70 - 100 mg/dL LAB CHEMISTRY METHOD 2024 2:43 PM [facility] BUN 24 5 - 25 mg/dL LAB CHEMISTRY METHOD 2024 2:43 PM [facility] Creatinine 0.76 0.50 - 1.10 mg/dL LAB CHEMISTRY METHOD 2024 2:43 PM [facility] eGFR 89 >=60 mL/min/1. 73m2 LAB CHEMISTRY METHOD 2024 2:43 PM [facility] Comment:Calculation based on the??Chronic Kidney Disease Epidemiology Collaboration (CKD-EPI) equation refit??without adjustment for race. BUN/Creatinine Ratio 31.6 LAB CHEMISTRY METHOD 2024 2:43 PM [facility] Calcium 9.8 8.5 - 10.5 mg/dL LAB CHEMISTRY METHOD 2024 2:43 PM [facility] AST (SGOT) 14 10 - 42 unit/L LAB CHEMISTRY METHOD 2024 2:43 PM [facility] ALT (SGPT) 19 10 - 60 unit/L LAB CHEMISTRY METHOD 2024 2:43 PM [facility] Alkaline Phosphatase 89 42 - 121 unit/L LAB CHEMISTRY METHOD 2024 2:43 PM [facility] Total Protein 7.1 6.0 - 8.0 g/dL LAB CHEMISTRY METHOD 2024 2:43 PM [facility] Albumin 4.0 3.2 - 5.0 g/dL LAB CHEMISTRY METHOD 2024 2:43 PM [facility] Total Bilirubin 0.4 0.0 - 1.4 mg/dL LAB CHEMISTRY METHOD 2024 2:43 PM [facility] Blood Venous blood specimen / Unknown Venipuncture / Unknown 2024 9:45 AM EST 2024 9:45 AM EST us Racheal Ponce MD LAB BLOOD ORDERABLES Final [facility]ult [facility] [address] [place] [address], from Last 3 Months or Most Recently Relevant to Health Maintenance Insurance [facility] Advance Directives Documents on File Type Date Recorded Patient Cloth Checker Expl anation Health Care Decision (hx) 10/19/2023 PO LST FORM Care Teams Music Worker Relationship Specialty Start Date End Date Racheal Ponce MD [address] [place] [address] [place] [address] PCP - General Internal Medicine 06/24/24
== END 2024-10-01 13:47 | disposition home or self-care (01) ==
LOC: HO.MAMMO 13:46
PROVIDERS: PCP Internal Medicine; Visit Provider Internal Medicine
DX: N64.89 Other specified disorders of breast (principal)
CPT/HCPCS: 76642; 77061; 77065

== ENCOUNTER → 2024-10-01 14:00 | Outpatient (BNV) | payer OTHER, SELFPAY | PROVIDERS: PCP Internal Medicine; Visit Provider Internal Medicine | DX: R92.8 Other abnormal and inconclusive findings on diagnostic imaging of breast (principal) | CPT/HCPCS: 76641; 77061; 77065 ==

== ENCOUNTER 2024-10-15 07:52 | Outpatient (REF) | payer OTHER, SELFPAY ==
--- NOTE | ~2024-10-15 | MM_ITS ---
EXAMINATION: STEREOTACTICALLY-GUIDED LEFT BREAST BIOPSY CLINICAL INFORMATION: Focal asymmetry with questioned distortion in the upper outer left breast. COMPARISON: [facility] on PACS. INFORMED CONSENT: After the details of the procedure, as well as the risks (including, but not limited to, bleeding, hematoma formation, and infection), benefits and alternatives (including doing nothing, short-interval follow up, and surgery) to the procedure were explained to the patient in detail and all of her questions were answered, informed written consent was obtained. TECHNIQUE/FINDINGS: A timeout was performed. The lesion intended for biopsy was identified stereotactically and targeted. The skin of the left breast was then cleansed with sterile solution. Using stereotactic guidance, aseptic technique, and 1% lidocaine with and without epinephrine for local anesthesia, a total of 14 cores were obtained through the targeted area with a 9-gauge vacuum-assisted Eviva core biopsy device from a inferior approach. At the completion of tissue sampling, a single top hat-shaped metallic clip was deposited at the biopsy site. Adequate sampling was achieved. The postprocedure 2-view direct digital mammogram reveals satisfactory positioning of the biopsy clip. The patient tolerated the procedure well and, after assuring adequate hemostasis, was discharged in good condition after reviewing postbiopsy breast care instructions. Final pathology results are pending. MM/MM stereotactic biopsy LT IMPRESSION: 1. Uncomplicated stereotactically-guided core biopsy of the left breast. The 2-view direct digital postprocedure mammogram reveals satisfactory positioning of the biopsy clip. 2. Final pathology results are pending. A separate report with final recommendations will be issued once these results are made available. Electronically signed by: Ermelinda Dave DO 10/15/2024 10:25 AM EDT
--- OUTSIDE RECORDS SUMMARY | 2024-10-15 08:25 | XMS_ITS | Clinical Summary ---
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 ([facility] V24) Hypertension, unspecified type LIPID PANEL WITH REFLEX TO DIRECT LDL Routine 2024 9:45 AM EST Pure hypercholesterolemi a Major depressive disorder, 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 ([facility] V24) Hypertension, unspecified type from Last 3 Months or Most Recently Relevant to Health Maintenance Results * Lipid panel with reflex to direct LDL (2024 9:45 AM EST) Cholesterol 196 0 - 200 mg/dL LAB CHEMISTRY METHOD 2024 2:44 PM EST [facility] Triglycerides 64 0 - 150 mg/dL LAB CHEMISTRY METHOD 2024 2:44 PM EST [facility] HDL 99 >=40 mg/dL LAB CHEMISTRY METHOD 2024 2:44 PM EST [facility] LDL Calculated 84 0 - 100 mg/dL LAB CHEMISTRY METHOD 2024 2:44 PM [facility] VLDL Cholesterol David 12.8 mg/dL LAB CHEMISTRY METHOD 2024 2:44 PM [facility] Non HDL Chol. (LDL+VLDL) 97 <145 mg/dL LAB CHEMISTRY METHOD 2024 2:44 PM [facility] Chol/HDL Ratio 2.0 0.0 - 4.4 LAB CHEMISTRY METHOD 2024 2:44 PM [facility] Blood Venous blood specimen / Unknown Venipuncture / Unknown 2024 9:45 AM EST 2024 9:45 AM EST us Racheal Ponce MD LAB BLOOD ORDERABLES Final Re sult [facility] [address] [place] [address], [place] [phone] * Comprehensive metabolic panel (2024 9:45 AM EST) Sodium 137 133 - 145 mmol/L LAB CHEMISTRY METHOD 2024 2:43 PM [facility] Potassium 4.5 3.5 - 5.5 mmol/L LAB CHEMISTRY METHOD 2024 2:43 PM [facility] Chloride 106 96 - 110 mmol/L LAB CHEMISTRY METHOD 2024 2:43 PM [facility] CO2 26 21 - 32 mmol/L LAB CHEMISTRY METHOD 2024 2:43 PM [facility] Anion Gap 5 3 - 11 LAB CHEMISTRY METHOD 2024 2:43 PM [facility] Glucose 95 70 - 100 mg/dL LAB CHEMISTRY METHOD 2024 2:43 PM [facility] BUN 24 5 - 25 mg/dL LAB CHEMISTRY METHOD 2024 2:43 PM [facility] Creatinine 0.76 0.50 - 1.10 mg/dL LAB CHEMISTRY METHOD 2024 2:43 PM [facility] eGFR 89 >=60 mL/min/1. 73m2 LAB CHEMISTRY METHOD 2024 2:43 PM [facility] Comment:Calculation based on the??Chronic Kidney Disease Epidemiology Collaboration (CKD-EPI) equation refit??without adjustment for race. BUN/Creatinine Ratio 31.6 LAB CHEMISTRY METHOD 2024 2:43 PM [facility] Calcium 9.8 8.5 - 10.5 mg/dL LAB CHEMISTRY METHOD 2024 2:43 PM [facility] AST (SGOT) 14 10 - 42 unit/L LAB CHEMISTRY METHOD 2024 2:43 PM [facility] ALT (SGPT) 19 10 - 60 unit/L LAB CHEMISTRY METHOD 2024 2:43 PM [facility] Alkaline Phosphatase 89 42 - 121 unit/L LAB CHEMISTRY METHOD 2024 2:43 PM [facility] Total Protein 7.1 6.0 - 8.0 g/dL LAB CHEMISTRY METHOD 2024 2:43 PM [facility] Albumin 4.0 3.2 - 5.0 g/dL LAB CHEMISTRY METHOD 2024 2:43 PM [facility] Total Bilirubin 0.4 0.0 - 1.4 mg/dL LAB CHEMISTRY METHOD 2024 2:43 PM [facility] Blood Venous blood specimen / Unknown Venipuncture / Unknown 2024 9:45 AM EST 2024 9:45 AM EST us Racheal Ponce MD LAB BLOOD ORDERABLES Final [facility] [address] [place] [address], from Last 3 Months or Most Recently Relevant to Health Maintenance Insurance [facility] Advance Directives Documents on File Type Date Recorded 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
[2024-10-15] MEDS: Lidocaine HCl 1 % 20 ML VIAL 5 ML SUBCUT (09:01)
[2024-10-15] MEDS: Sodium Bicarbonate 8.4% 50 MEQ/50 ML VIAL SUBCUT (09:02)
[2024-10-15] MEDS: Lidocaine HCl 1%/Epi 1:100,000 10 ML VIAL 12 ML SUBCUT (09:03)
== END 2024-10-15 07:53 | disposition home or self-care (01) ==
LOC: HO.MAMMO 07:52
PROVIDERS: PCP Internal Medicine; Visit Provider Internal Medicine
DX: N60.22 Fibroadenosis of left breast (principal)
CPT/HCPCS: 19081; 88305; A4648; J2003; J2004

== ENCOUNTER → 2024-10-15 08:00 | Outpatient (BNV) | payer OTHER, SELFPAY | PROVIDERS: PCP Internal Medicine; Visit Provider Internal Medicine | DX: R92.8 Other abnormal and inconclusive findings on diagnostic imaging of breast (principal) | CPT/HCPCS: 19081; 77065 ==

== ENCOUNTER 2024-11-21 10:55 | Day surgery (SDC) | payer OTHER, SELFPAY ==
--- OUTSIDE RECORDS SUMMARY | 2024-11-11 11:51 | XMS_ITS | Patient Health Record ---
Author Organization [facility] Address [address] [place] [id number] Care Team Providers Care Food Service Counter Clerk Name Role Phone Racheal Ponce Primary Care Provider UnavailFranklyn Lane Jr Unavailable [phone] Allergies No Known Allergies Reason For Referral [...] HCl 50 MG TAKE 1 TABLET BY [facility] ONCE DAILY Oral for 90 Active [...] Problem Status W/U Status Risk Notes Problem 241743985 Colon cancer screening (Z12.11) Active confirmed Problem Erosive esophagitis (28195746) Erosive esophagitis (K22.10) Active confirmed Problem [id number] Gastroesophageal reflux disease, unspecified whether esophagitis present (K21.9) Active confirmed Plan Of Treatment Future Test Test Name Order Date COLONOSCOPY 12/11/2012 UPPER GI ENDOSCOPY ANY OTHER TECHNIQUE 1 06/05/2022 COLONOSCOPY 04/05/2023 Insurance Providers Payer Name Payer Address Payer Phone Subscriber Number Group Number Insured Name Patient Relationship to Insured Coverage Start Date Coverage End Date [facility] [address] [place] [phone] [id number] MCKENAN Self - patient is the insured Medical (General) History Medical History History ICD Code Hypertension Hyperlipidemia Gastroesophageal reflux disease Colonoscopy 02/07 hyperplastic polyp, ten -year followup. Surgical History Surgery Date(Month/Year) repair of septal defect (? ASD) 1992 knee replacement left
[2024-11-19 09:01] VITALS: BMI 39.2
[2024-11-21 11:02] VITALS: BMI 39.1
[2024-11-21 11:10] VITALS: BP 131/83; PULSE 77; RESP 15; TEMP 36.4; O2SAT 96
[2024-11-21] MEDS: Lactated Ringers 1,000 ML 100 ML IVCONT (11:22)
--- NOTE | 2024-11-21 11:35 | HO.ANESPROP2 ---
Documented by User: Lori De La Rosa NP 11/20/24 09:26 HPI - Anesthesia Eval Consult details Narrative: 64yo F for Left Shoulder Arthroscopy distal clavicle excision, acromioplasty, capsular release, and manipulation Medically optimized for surgery per PCP - office visit 10/2024 ASD s/p repair 1992 [facility] Active Problems Active Problems: All Active Problems (Updated 11/19/24 @ 08:58 by Leilani Ramsey RN) Rotator cuff insufficiency of left shoulder (Acute) Impingement syndrome of left shoulder (Acute) Left shoulder pain (Acute) Past Medical History Medical History Depression Hiatal hernia ASD (atrial septal defect) Elevated cholesterol HTN (hypertension) GERD (gastroesophageal reflux disease) Family History Family history of problems with anesthesia: No Surgical History Surgical History History of bilateral knee replacement Hx of atrial septal defect repair H/O colonoscopy History of Problems with Anesthesia: No Social History Social History Patient Tobacco Use Status: Former Tobacco user Tobacco use type: Cigarette Second Hand Smoke Exposure: No Use of substances other than those prescribed or required for medical reasons: No Are you DNR?: No Advance Directives: No Advance Directives Information Provided: Yes Meds Allergies Allergy/AdvReac Type Severity Reaction Status Date / Time No Known Allergies Allergy Verified 11/21/24 11:01 Active Medications: Current Medications Cefazolin Sodium/Dextrose (Ancef) 2 gm in 50 mls @ 100 mls/hr IV PREOP ONE Stop: 11/21/24 06:16 Home Medications ?Medication ?Instructions ?Recorded ?Confirmed ?Last Taken ?Type amlodipine 10 mg tablet 10 mg PO DAILY 05/09/23 11/21/24 11/21/24 07:00 History atorvastatin 40 mg tablet 40 mg PO BEDTIME 05/09/23 11/21/24 Unknown History fluticasone propionate 50 1 spray intranasal BID 05/09/23 11/21/24 Unknown History mcg/actuation nasal spray,suspension lisinopril 30 mg tablet 30 mg PO DAILY 05/09/23 11/21/24 Unknown History sertraline 50 mg tablet 50 mg PO DAILY 05/09/23 11/21/24 11/21/24 07:00 History Exam Height,Weight and Vital Signs: Height 5 ft 0.05 in Weight 91.172 kg Assessment and Plan Assessment Anesthesia Assessment: Chart Reviewed Final Anesthetic Review Family History of Problems with Anesthesia: No History of Problems with Anesthesia: No Documented by User: Tasha Newell DO 11/21/24 11:54 [facility] Past Medical History Medical History Depression Hiatal hernia ASD (atrial septal defect) Elevated cholesterol HTN (hypertension) GERD (gastroesophageal reflux disease) Family History Family history of problems with anesthesia: No Surgical History Surgical History History of bilateral knee replacement Hx of atrial septal defect repair H/O colonoscopy History of Problems with Anesthesia: No Social History Social History Patient Tobacco Use Status: Former Tobacco user Tobacco use type: Cigarette Second Hand Smoke Exposure: No Use of substances other than those prescribed or required for medical reasons: No Are you DNR?: No Advance Directives: No Advance Directives Information Provided: Yes Meds Allergies Allergy/AdvReac Type Severity Reaction Status Date / Time No Known Allergies Allergy Verified 11/21/24 11:01 Home Medications ?Medication ?Instructions ?Recorded ?Confirmed ?Last Taken ?Type amlodipine 10 mg tablet 10 mg PO DAILY 05/09/23 11/21/24 11/21/24 07:00 History atorvastatin 40 mg tablet 40 mg PO BEDTIME 05/09/23 11/21/24 Unknown History fluticasone propionate 50 1 spray intranasal BID 05/09/23 11/21/24 Unknown History mcg/actuation nasal spray,suspension lisinopril 30 mg tablet 30 mg PO DAILY 05/09/23 11/21/24 Unknown History sertraline 50 mg tablet 50 mg PO DAILY 05/09/23 11/21/24 11/21/24 07:00 History Exam Exam Date and Time: 6/27/25 1135 Height,Weight and Vital Signs: Height 5 ft 0.05 in Weight 91.172 kg Vital Signs Temperature 97.5 F 11/21/24 11:10 Pulse Rate 77 11/21/24 11:10 Respiratory Rate 15 11/21/24 11:10 Blood Pressure 131/83 11/21/24 11:10 Pulse Oximetry 96 11/21/24 11:10 Oxygen Delivery Method Room Air 11/21/24 11:10 Temperature 97.5 F 11/21/24 11:10 Pulse Rate 77 11/21/24 11:10 Respiratory Rate 15 11/21/24 11:10 Blood Pressure 131/83 11/21/24 11:10 Pulse Oximetry 96 11/21/24 11:10 Oxygen Delivery Method Room Air 11/21/24 11:10 Airway Mallampati Class: II TM Dist: <=3cm Neck ROM: Full Loose/Missing/Broken Teeth: No (patient denies any loose or broken teeth) Heart: S1S2 Lungs: CTAB Assessment and Plan Assessment Anesthesia Assessment: Anesthesia Plan Discussed and Chart Reviewed Final Anesthetic Review Family History of Problems with Anesthesia: No History of Problems with Anesthesia: No NPO: Yes ASA Class: II Final Preanesthetic Review: No Changes in Pt Med Stat, Meds/Allgs Chart Reviewed, Consent Obtained/Reviewed and Anes Risks/Benef Reviewed Patient Risk: Low Procedure Risk: Intermediate Anesthetic Plan Anesthetic Plan: GA, Regional Block (left brachial plexus block) and Agree w/ Assess. and Plan Disposition: Standard PACU
[2024-11-21] MEDS: ceFAZolin Sodium/Dextrose,Iso 2 GM/50 ML PIGGYBACK IV (13:12)
[2024-11-21] MEDS: Acetaminophen 1,000 MG/100 ML PIGGYBACK 400 MG IV (13:28)
--- NOTE | 2024-11-21 14:17 | PM.OP ---
Brief Operative Note Date of Service: 11/21/24 Pre-op diagnosis: Left shoulder impingement syndrome, left shoulder acromioclavicular joint arthritis, left shoulder adhesive capsulitis, left shoulder glenohumeral joint arthritis Post-op diagnosis: same Procedure: Left shoulder arthroscopic distal clavicle excision, left shoulder arthroscopic acromioplasty, left shoulder arthroscopic anterior capsular release, left shoulder glenohumeral arthroscopic debridement, left shoulder manipulation under anesthesia Implants: none Surgeon: Ron Vilchis MD Anesthesia: GETA and regional Was an Supervisor Fruit Grading used for this Procedure?: No Estimated blood loss (mL): 10 Pathology: none sent Condition: stable Disposition: PACU
--- NOTE | 2024-11-21 14:19 | P.OP_ITS ---
Operative Note Operative Note Date of Service: 11/21/24 Narrative: After the patient was identified as Noreen Carrillo and her left shoulder was initialed by myself the patient was brought to the holding area where a left shoulder interscalene regional block was performed by the anesthesiologist in routine fashion. The patient was then brought to the operating room where general anesthesia was induced by the anesthesiologist in routine fashion. The patient was given 2 g of IV Ancef preoperatively for infection prophylaxis. Examination under anesthesia of the patient's left shoulder showed decreased range of motion when compared to the right shoulder. The patient's left shoulder had forward flexion to 130 degrees compared to 170 degrees, external rotation to 40 degrees compared to 70 degrees, and internal rotation to 40 degrees compared to 50 degrees. The patient was gently positioned in the beach chair position with all bony prominences well padded. The patient's left shoulder region and upper extremity were prepped and draped in sterile fashion. A formal time-out was completed. A #11 scalpel blade was used to make a posterior portal 2 cm inferior and 1 cm medial to the posterolateral corner of the acromion. Blunt trocar technique was used to enter the glenohumeral joint in routine fashion. An anterior portal was made just lateral to the coracoid process after proper positioning was confirmed using a spinal needle. Diagnostic arthroscopy showed diffuse grade 3 and 4 degenerative changes of the humeral head articular surfaces well as diffuse grade 2 and 3 degenerative changes of the glenoid articular surface. The articular surface of the humeral head was made smooth using the arthroscopic shaver. The articular surface of the glenoid was already smooth so no chondroplasty was indicated. There was no evidence of rotator cuff tearing. There was no evidence of injury to the biceps tendon or its insertion onto the glenoid. There was inflammation of the anterior joint capsule consistent with adhesive capsulitis. The ArthroCare Wand was then used to perform an anterior capsular release between the inferior border of the biceps tendon and the superior border of the subscapularis tendon. The arthroscope was then placed from the posterior portal into the subacromial space. A lateral portal was made 2 fingerbreadths lateral to the anterior lateral corner of the acromion. The ArthroCare Wand was used to ablate soft tissues along the undersurface of the acromion as well as to excise the coracoacromial ligament. There was a sharp spur along the undersurface of the acromion which was removed using the hooded bur. The arthroscope was then p laced into the lateral portal and the acromioplasty was completed with the bur in the posterior portal using the posterior aspect of the acromion as a cutting block. The ArthroCare Wand was then brought in through the anterior portal and was used to ablate soft tissues along the acromioclavicular joint and distal clavicle. The posterior and superior ligamentous structures were left intact. A distal clavicle excision of 8 mm was performed using the hooded bur. Any remaining bursal tissue was removed using the arthroscopic shaver. The subacromial space was irrigated and then drained. All arthroscopic instruments were removed. A gentle manipulation under anesthesia was then performed. Full passive range of motion was easily attained. The 3 portals were closed with 3-0 nylon interrupted suture. The subacromial space was injected with Marcaine. Dry sterile dressing was placed over all incisions. The patient's left upper extremity was placed into a sling. The patient was awoken and extubated in the operating room. The patient was transferred to the recovery room in stable condition.
[2024-11-21 14:24] VITALS: BP 143/67; PULSE 74; RESP 16; TEMP 37.1; O2SAT 96
[2024-11-21 14:29] VITALS: BP 136/79; PULSE 78; RESP 16; O2SAT 100
[2024-11-21 14:34] VITALS: BP 138/71; PULSE 73; RESP 16; O2SAT 96
[2024-11-21] MEDS: cefTRIAXone sodium 1 GM VIAL IVPUSH (14:38)
[2024-11-21 14:39] VITALS: BP 139/70; PULSE 76; RESP 18; O2SAT 96
[2024-11-21 15:03] VITALS: BP 126/82; PULSE 72; RESP 20; TEMP 36.4; O2SAT 98
== END 2024-11-21 15:30 | disposition home or self-care (01) ==
PROVIDERS: PCP Internal Medicine; Visit Provider Orthopaedic Surgery
PROC: (CPT 29805; principal; 2024-11-21 13:00)
DX: M75.42 Impingement syndrome of left shoulder (principal); M75.02 Adhesive capsulitis of left shoulder; M19.012 Primary osteoarthritis, left shoulder; M25.512 Pain in left shoulder; M25.612 Stiffness of left shoulder, not elsewhere classified; Z87.828 Personal history of other (healed) physical injury and trauma; Q21.10 Atrial septal defect, unspecified; I10 Essential (primary) hypertension; K21.9 Gastro-esophageal reflux disease without esophagitis; E78.00 Pure hypercholesterolemia, unspecified; Z79.51 Long term (current) use of inhaled steroids; Z79.899 Other long term (current) drug therapy; Z98.890 Other specified postprocedural states; Z87.891 Personal history of nicotine dependence; Z96.653 Presence of artificial knee joint, bilateral
CPT/HCPCS: 29824; 29825; 29826; J0131; J0171; J0690; J0696; J1100; J2003; J2250; J2405; J2704; J2795; J3010

== ENCOUNTER → 2024-11-21 10:55 | Outpatient (BNV) | payer OTHER, SELFPAY | PROVIDERS: PCP Internal Medicine; Visit Provider Orthopaedic Surgery | DX: M75.42 Impingement syndrome of left shoulder (principal); M19.012 Primary osteoarthritis, left shoulder; M75.02 Adhesive capsulitis of left shoulder | CPT/HCPCS: 29822; 29824; 29826 ==

== ENCOUNTER 2024-12-04 09:29 | Outpatient (AMB) | payer OTHER, SELFPAY ==
--- NOTE | 2024-12-04 09:41 | MHC.OFFVIS ---
Intake Visit Reasons: PO-Lt Shld 11/21/24 Intake Note: Noreen is a 64 year old right hand dominant female who presents today for a post operative visit s/p left Shoulder 11/21/24 . Patient states that still having a sharp pain, no numbness or tingling.Taking NSAIDs as needed and icing when she needs too. Allergies No Known Allergies Allergy (Verified 12/04/24 09:43) Medication List - Last Reconciled 12/05/24 by Omid Live PA-C amlodipine 10 mg PO DAILY atorvastatin 40 mg PO BEDTIME fluticasone propionate 50 mcg/actuation 1 spray intranasal BID lisinopril 30 mg PO DAILY oxycodone 10 mg (2 x 5 mg) PO Q4H PRN sertraline 50 mg PO DAILY HPI HPI PO-Lt Shld 11/21/24 DR: Details: 54-year-old female returns to the office today status post left shoulder arthroscopy with Dr. Vilchis on 11/21/2024. She states she is doing well she has mild discomfort overall no concerns. [facility] Medical History Depression Hiatal hernia ASD (atrial septal defect) Elevated cholesterol HTN (hypertension) GERD (gastroesophageal reflux disease) Surgical History History of bilateral knee replacement Hx of atrial septal defect repair H/O colonoscopy Social History Patient Tobacco Use Status: Former Tobacco user Tobacco use type: Cigarette Second Hand Smoke Exposure: No Review of Systems Const All systems reviewed & are unremarkable except as noted in HPI and below Physical Exam Extrem Other: Left shoulder normal to inspection incisions are clean dry and intact. No erythema or drainage. Sensation intact. Pulses Results Reviewed Results Reviewed: Brief Operative Note Date of Service: 11/21/24 Pre-op diagnosis: Left shoulder impingement syndrome, left shoulder acromioclavicular joint arthritis, left shoulder adhesive capsulitis, left shoulder glenohumeral joint arthritis Post-op diagnosis: same Procedure: Left shoulder arthroscopic distal clavicle excision, left shoulder arthroscopic acromioplasty, left shoulder arthroscopic anterior capsular release, left shoulder glenohumeral arthroscopic debridement, left shoulder manipulation under anesthesia Implants: none Surgeon: Ron Vilchis MD Assessment & Plan Assessment & Plan (1) Impingement syndrome of left shoulder: Code(s): M75.42 - Impingement syndrome of left shoulder Category: Medical (2) Rotator cuff insufficiency of left shoulder: Code(s): M25.312 - Other instability, left shoulder Category: Medical Plan Sutures removed today Steri-Strips applied. I stressed the importance of limiting her activities such as overhead reaching or lifting for the next 4-6 weeks to avoid irritation. I did send an order for physical therapy to begin range of motion, rotator cuff and periscapular stabilization. She will see us back in 4 weeks for re-evaluation with Dr. Vilchis, sooner if needed. Orders: Orders PT Evaluation and Treatment 12/04/24 M25.312 - Other instability, left shoulder, M75.42 - Impingement syndrome of left shoulder Coding Level of Care Code Global (23475) Diagnoses Impingement syndrome of left shoulder M75.42 Rotator cuff insufficiency of left shoulder M25.312
--- OUTSIDE RECORDS SUMMARY | 2024-12-04 09:55 | XMS_ITS | Clinical Summary ---
Author Organization [address] Address [address] [place] [address] Phone Care Team Providers Care Title One Reading Teacher Name Role Phone Racheal Ponce MD Primary Care Provider [phone] Social History Tobacco Use Types Packs/Day Years [...] 02/23/2021, Additional history exists Influenza Vaccine (#1) 2025 , 03/16/2021, 02/25/2018 Hypertension/CHF/CAD Annual BMP Blood [...] depressive disorder, 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 ([facility] V24) Hypertension, unspecified type LIPID PANEL WITH REFLEX TO DIRECT LDL Routine 2024 9:45 AM EST Pure hypercholesterolemi a Major depressive disorder, 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 ([facility] V24) Hypertension, unspecified type from Last 3 Months or Most Recently Relevant to Health Maintenance Results * Lipid panel with reflex to direct LDL (2024 9:45 AM EST) Cholesterol 196 0 - 200 mg/dL LAB CHEMISTRY METHOD 2024 2:44 PM EST [facility] Triglycerides 64 0 - 150 mg/dL LAB CHEMISTRY METHOD 2024 2:44 PM EST [facility] HDL 99 >=40 mg/dL LAB CHEMISTRY METHOD 2024 2:44 PM EST [facility] LDL Calculated 84 0 - 100 mg/dL LAB CHEMISTRY METHOD 2024 2:44 PM [facility] VLDL Cholesterol David 12.8 mg/dL LAB CHEMISTRY METHOD 2024 2:44 PM [facility] Non HDL Chol. (LDL+VLDL) 97 <145 mg/dL LAB CHEMISTRY METHOD 2024 2:44 PM [facility] Chol/HDL Ratio 2.0 0.0 - 4.4 LAB CHEMISTRY METHOD 2024 2:44 PM [facility] Blood Venous blood specimen / Unknown Venipuncture / Unknown 2024 9:45 AM EST 2024 9:45 AM EST us Racheal Ponce MD LAB BLOOD ORDERABLES Final Re sult [facility] [address] [place] [address], [place] [phone] * Comprehensive metabolic panel (2024 9:45 AM EST) Sodium 137 133 - 145 mmol/L LAB CHEMISTRY METHOD 2024 2:43 PM [facility] Potassium 4.5 3.5 - 5.5 mmol/L LAB CHEMISTRY METHOD 2024 2:43 PM [facility] Chloride 106 96 - 110 mmol/L LAB CHEMISTRY METHOD 2024 2:43 PM [facility] CO2 26 21 - 32 mmol/L LAB CHEMISTRY METHOD 2024 2:43 PM [facility] Anion Gap 5 3 - 11 LAB CHEMISTRY METHOD 2024 2:43 PM [facility] Glucose 95 70 - 100 mg/dL LAB CHEMISTRY METHOD 2024 2:43 PM [facility] BUN 24 5 - 25 mg/dL LAB CHEMISTRY METHOD 2024 2:43 PM [facility] Creatinine 0.76 0.50 - 1.10 mg/dL LAB CHEMISTRY METHOD 2024 2:43 PM [facility] eGFR 89 >=60 mL/min/1. 73m2 LAB CHEMISTRY METHOD 2024 2:43 PM [facility] Comment:Calculation based on the Chronic Kidney Disease Epidemiology Collaboration (CKD-EPI) equation refit without adjustment for race. BUN/Creatinine Ratio 31.6 LAB CHEMISTRY METHOD 2024 2:43 PM [facility] Calcium 9.8 8.5 - 10.5 mg/dL LAB CHEMISTRY METHOD 2024 2:43 PM [facility] AST (SGOT) 14 10 - 42 unit/L LAB CHEMISTRY METHOD 2024 2:43 PM [facility] ALT (SGPT) 19 10 - 60 unit/L LAB CHEMISTRY METHOD 2024 2:43 PM [facility] Alkaline Phosphatase 89 42 - 121 unit/L LAB CHEMISTRY METHOD 2024 2:43 PM [facility] Total Protein 7.1 6.0 - 8.0 g/dL LAB CHEMISTRY METHOD 2024 2:43 PM [facility] Albumin 4.0 3.2 - 5.0 g/dL LAB CHEMISTRY METHOD 2024 2:43 PM [facility] Total Bilirubin 0.4 0.0 - 1.4 mg/dL LAB CHEMISTRY METHOD 2024 2:43 PM [facility] Blood Venous blood specimen / Unknown Venipuncture / Unknown 2024 9:45 AM EST 2024 9:45 AM EST us Racheal Ponce MD LAB BLOOD ORDERABLES Final Re sult [facility] [address] [place] [address], [place] [phone] from Last 3 Months or Most Recently Relevant to Health Maintenance Insurance [facility] Advance Directives Documents on File Type Date 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
--- OUTSIDE RECORDS SUMMARY | 2024-12-04 09:55 | XMS_ITS | Patient Health Record ---
Author Organization [facility] Address [address] [place] [address] Care Team Providers Care Trade Recruiter Name Role Phone Racheal Ponce Primary Care Provider UnavailFranklyn Lane Jr Unavailable [phone] Allergies No Known Allergies Reason For Referral [...] HCl 50 MG TAKE 1 TABLET BY [facility] ONCE DAILY Oral for [...] Problem Status W/U Status Risk Notes Problem 526135866 Colon cancer screening (Z12.11) Active confirmed Problem Erosive esophagitis (12248876) Erosive esophagitis (K22.10) Active confirmed Problem 535604072 Gastroesophageal reflux disease, unspecified whether esophagitis present (K21.9) Active confirmed Plan Of Treatment Future Test Test Name Order Date COLONOSCOPY 12/11/2012 UPPER GI ENDOSCOPY ANY OTHER TECHNIQUE 1 06/05/2022 COLONOSCOPY 04/05/2023 Insurance Providers Payer Name Payer Address Payer Phone Subscriber Number Group Number Insured Name Patient Relationship to Insured Coverage Start Date Coverage End Date [facility] [address] [place] [phone] [id number] KYREE MCKENNA Self - patient is the insured Medical (General) History Medical History History ICD Code Hypertension Hyperlipidemia Gastroesophageal reflux disease Colonoscopy 02/07 hyperplastic polyp, ten -year followup. Surgical History Surgery Date(Month/Year) repair of septal defect (? ASD) 1992 knee replacement left
== END 2024-12-04 10:37 | disposition home or self-care (01) ==
LOC: HO.HOS 09:29
PROVIDERS: PCP Internal Medicine; Visit Provider Physician Assistant
DX: M75.42 Impingement syndrome of left shoulder (principal); M25.312 Other instability, left shoulder
CPT/HCPCS: 99024

== ENCOUNTER 2024-12-31 08:53 | Outpatient (AMB) | payer OTHER, SELFPAY ==
--- NOTE | 2024-12-31 08:56 | MHC.OFFVIS ---
Vital Signs 12/31/24 09:01 Height 4 ft 11 in Weight 205 lb BMI 41.4 Intake Visit Reasons: PO-Lt Shld 11/21/24 Intake Note: Noreen is a 64 year old female right hand dominant who presents today as a Post Op visit for her Left Shoulder 11/21/24 . At last visit on 12/04/24 with TM we referred her to physical therapy. At today's visit Patient states that her shoulder still feels tight but physical therapy is working with her to improve her ROM. No numbness or tingling to report at this time. Patient added that she is due back at work on 01/19/25. The patient is considering going back to light duty if she has continued discomfort. Allergies No Known Allergies Allergy (Verified 12/31/24 09:04) Medication List - Last Reconciled 12/31/24 by Ron Vilchis MD amlodipine 10 mg PO DAILY atorvastatin 40 mg PO BEDTIME fluticasone propionate 50 mcg/actuation 1 spray intranasal BID lisinopril 30 mg PO DAILY sertraline 50 mg PO DAILY [facility] Medical History Depression Hiatal hernia ASD (atrial septal defect) Elevated cholesterol HTN (hypertension) GERD (gastroesophageal reflux disease) Surgical History History of bilateral knee replacement Hx of atrial septal defect repair H/O colonoscopy Social History (Updated 12/31/24 @ 09:03 by Nusrat Pepper) Patient Tobacco Use Status: Former Tobacco user Tobacco use type: Cigarette Second Hand Smoke Exposure: No Current occupational status: employed 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 Physical Exam Vital Signs: BMI result Body Mass Index 41.4 Extrem Other: Left shoulder examination shows that the surgical incisions are well healed, no erythema, mild discomfort with range of motion, no instability Assessment & Plan Assessment & Plan (1) Left shoulder pain: Code(s): M25.512 - Pain in left shoulder Category: Medical Plan Ms. Carrillo continues to do very well after undergoing left shoulder arthroscopic surgery on 11/21/2024. She will continue going to formal physical therapy for now. She will gradually transition to a home exercise program. The do's and don'ts of lifting were discussed at length with the patient. She will contact me prior to her follow-up appointment in 2 months should any questions or concerns arise. Feel free to call me at any time should questions regarding her orthopedic management arise. Coding Level of Care Code Global (31809) Diagnoses Left shoulder pain M25.512
[2024-12-31 09:01] VITALS: BMI 41.4
--- OUTSIDE RECORDS SUMMARY | 2024-12-31 09:03 | XMS_ITS | Patient Health Record ---
Author Organization [facility] Address [address] [place] [address] Care Team Providers Care Road Engineer Name Role Phone Racheal Ponce Primary Care Provider UnavailFranklyn Lane Jr Unavailable [phone] Allergies No Known Allergies Reason For Referral [...] HCl 50 MG TAKE [address] [facility] ONCE DAILY Oral for 90 Active [...] Problem Status W/U Status Risk Notes Problem [id number] Colon cancer screening (Z12.11) Active confirmed Problem Erosive esophagitis (89923331) Erosive esophagitis (K22.10) Active confirmed Problem 075609128 Gastroesophageal reflux disease, unspecified whether esophagitis present (K21.9) Active confirmed Plan Of Treatment Future Test Test Name Order Date COLONOSCOPY 12/11/2012 UPPER GI ENDOSCOPY ANY OTHER TECHNIQUE 1 06/05/2022 COLONOSCOPY 04/05/2023 Insurance Providers Payer Name Payer Address Payer Phone Subscriber Number Group Number Insured Name Patient Relationship to Insured Coverage Start Date Coverage End Date [facility] [address] [place] [id number] [phone] [id number] KYREE MCKENNA Self - patient is the insured Medical (General) History Medical History History ICD Code Hypertension Hyperlipidemia Gastroesophageal reflux disease Colonoscopy 02/07 hyperplastic polyp, ten -year followup. Surgical History Surgery Date(Month/Year) repair of septal defect (? ASD) 1992 knee replacement left
--- OUTSIDE RECORDS SUMMARY | 2024-12-31 09:03 | XMS_ITS | Clinical Summary ---
Author Organization [address] Address [address] [place] [address] Phone Care Team Providers Care Molder Closed Molds Name Role Phone Racheal Ponce MD Primary Care Provider [phone] Social History Tobacco Use Types Packs/Day Years [...] PCV) 2012 Colorectal Cancer Screening: Colonoscopy 04/30/2022 HIV Screening 04/30/2022 Hepatitis C Screening 04/30/2022 Social Influencers of Health Screening 04/30/2022 Depression Screening 05/28/2024 Influenza Vaccine (#1) 2025 , 02/28/2022, 03/16/2021, Additional history exists Hypertension/CHF/CAD Annual BMP Blood Test 12/08/2025 12/08/2024, 2024 Cholesterol Screening (Lipid Panel) 12/08/2029 12/08/2024, 2024 DTaP,Tdap,and Td Vaccines (3 - Td or Tdap) 10/24/2034 10/24/2024, 06/30/2022 Zoster Vaccines Completed 12/16/2021, 10/15/2021 RSV Immunization Adult Patients Completed 06/20/2023 COVID-19 Vaccine Completed 07/14/2024, , 06/02/2021, Additional history exists MMR Vaccines Aged Out 07/14/2024 No longer eligi ble based on patient's age to complete this topic HIB Vaccines Aged Out No longer eligi [...] Diagnosis Comments CBC WITH AUTO DIFFERENTIAL Routine 12/08/2024 11:53 AM EDT Pure hypercholesterolem ia Adhesive bursitis of left shoulder Atrial septal defect of fossa ovalis CBC AND DIFFERENTIAL Routine 12/08/2024 11:53 AM EDT Pure hypercholesterolem ia Adhesive bursitis of left shoulder Atrial septal defect of fossa ovalis COMPREHENSIVE METABOLIC PANEL Routine 12/08/2024 11:53 AM EDT Pure hypercholesterolem ia Adhesive bursitis of left shoulder Atrial septal defect of fossa ovalis LIPID PANEL WITH REFLEX TO DIRECT LDL Routine 12/08/2024 11:53 AM EDT Pure hypercholesterolem ia Adhesive bursitis of left shoulder Atrial septal defect of fossa ovalis from Last 3 Months Results * Lipid panel with reflex to direct LDL (12/08/2024 11:53 AM EDT) Cholesterol 164 0 - 200 mg/dL LAB CHEMISTRY METHOD 12/08/2024 6:28 PM EDT [facility] Triglycerides 127 0 - 150 mg/dL LAB CHEMISTRY METHOD 12/08/2024 6:28 PM EDT [facility] HDL 80 >=40 mg/dL LAB CHEMISTRY METHOD 12/08/2024 6:28 PM EDT [facility] LDL Calculated 59 0 - 100 mg/dL LAB CHEMISTRY METHOD 12/08/2024 6:28 PM EDT [facility] VLDL Cholesterol David 25.4 mg/dL LAB CHEMISTRY METHOD 12/08/2024 6:28 PM EDT [facility] Non HDL Chol. (LDL+VLDL) 84 <145 mg/dL LAB CHEMISTRY METHOD 12/08/2024 6:28 PM EDT [facility] Chol/HDL Ratio 2.1 0.0 - 4.4 LAB CHEMISTRY METHOD 12/08/2024 6:28 PM EDT [facility] Blood Venous blood specimen / Unknown Venipuncture / Unknown 12/08/2024 11:53 AM EDT 12/08/2024 11:53 AM EDT us Racheal Ponce MD LAB BLOOD ORDERABLES Final Re sult [facility] [address] [place] [address], [place] [phone] * (ABNORMAL) CBC auto differential (12/08/2024 11:53 AM EDT) WBC 4.1(L) 4.8 - 10.8 K/mcL LAB HEMETOLOGY METHOD 12/08/2024 2:18 PM EDT [facility] RBC 3.90 3.80 - 4.80 M/mcL LAB HEMETOLOGY METHOD 12/08/2024 2:18 PM EDT [facility] Hemoglobin 12.0 11.5 - 16.0 g/dL LAB HEMETOLOGY METHOD 12/08/2024 2:18 PM EDT [facility] Hematocrit 37.0 35.0 - 47.0 % LAB HEMETOLOGY METHOD 12/08/2024 2:18 PM EDT [facility] MCV 95.6 79.0 - 98.0 FL LAB HEMETOLOGY METHOD 12/08/2024 2:18 PM EDT [facility] MCH 31.0 27.0 - 32.0 pcg LAB HEMETOLOGY METHOD 12/08/2024 2:18 PM EDT [facility] MCHC 32.4 32.0 - 37.0 g/dL LAB HEMETOLOGY METHOD 12/08/2024 2:18 PM EDT [facility] RDW 14.0 11.0 - 15.0 % LAB HEMETOLOGY METHOD 12/08/2024 2:18 PM EDT [facility] Platelets 315 130 - 400 K/mcL LAB HEMETOLOGY METHOD 12/08/2024 2:18 PM EDT [facility] MPV 10.4 7.0 - 11.0 FL LAB HEMETOLOGY METHOD 12/08/2024 2:18 PM EDT [facility] NRBC 0.0 <1.0 % LAB HEMETOLOGY METHOD 12/08/2024 2:18 PM EDT [facility] NRBC Absolute 0.00 <0.10 K/mcL LAB HEMETOLOGY METHOD 12/08/2024 2:18 PM EDT [facility] Neutrophils Relative 63.1 % LAB HEMETOLOGY METHOD 12/08/2024 2:18 PM EDT [facility] Lymphocytes Relative 21.7 % LAB HEMETOLOGY METHOD 12/08/2024 2:18 PM EDT [facility] Monocytes Relative 9.1 % LAB HEMETOLOGY METHOD 12/08/2024 2:18 PM EDT [facility] Eosinophils Relative 5.2 % LAB HEMETOLOGY METHOD 12/08/2024 2:18 PM EDT [facility] Basophils Relative 0.7 % LAB HEMETOLOGY METHOD 12/08/2024 2:18 PM EDT [facility] Immature Granulocytes Relative 0.2 % LAB HEMETOLOGY METHOD 12/08/2024 2:18 PM EDT [facility] Neutrophils Absolute 2.56 1.50 - 7.00 K/mcL LAB HEMETOLOGY METHOD 12/08/2024 2:18 PM EDT [facility] Lymphocytes Absolute 0.88(L) 1.00 - 5.00 K/mcL LAB HEMETOLOGY METHOD 12/08/2024 2:18 PM EDT [facility] Monocytes Absolute 0.37 0.20 - 1.00 K/mcL LAB HEMETOLOGY METHOD 12/08/2024 2:18 PM EDT [facility] Eosinophils Absolute 0.21 0.00 - 0.50 K/mcL LAB HEMETOLOGY METHOD 12/08/2024 2:18 PM EDT [facility] Basophils Absolute 0.03 0.00 - 0.20 K/mcL LAB HEMETOLOGY METHOD 12/08/2024 2:18 PM EDT [facility] Immature Granulocytes Absolute 0.01 0.00 - 0.03 K/mcL LAB HEMETOLOGY METHOD 12/08/2024 2:18 PM EDT [facility] Blood Venous blood specimen / Unknown Venipuncture / Unknown 12/08/2024 11:53 AM EDT 12/08/2024 11:53 AM EDT us Racheal Ponce MD LAB BLOOD ORDERABLES Final Re sult [facility] [address] [place] [address], * Comprehensive metabolic panel (12/08/2024 11:53 AM EDT) Sodium 138 133 - 145 mmol/L LAB CHEMISTRY METHOD 12/08/2024 6:18 PM EDT [facility] Potassium 4.4 3.5 - 5.5 mmol/L LAB CHEMISTRY METHOD 12/08/2024 6:18 PM [facility] Chloride 107 96 - 110 mmol/L LAB CHEMISTRY METHOD 12/08/2024 6:18 PM [facility] CO2 25 21 - 32 mmol/L LAB CHEMISTRY METHOD 12/08/2024 6:18 PM [facility] Anion Gap 6 3 - 11 LAB CHEMISTRY METHOD 12/08/2024 6:18 PM [facility] Glucose 91 70 - 100 mg/dL LAB CHEMISTRY METHOD 12/08/2024 6:18 PM [facility] BUN 17 5 - 25 mg/dL LAB CHEMISTRY METHOD 12/08/2024 6:18 PM [facility] Creatinine 0.79 0.50 - 1.10 mg/dL LAB CHEMISTRY METHOD 12/08/2024 6:18 PM [facility] eGFR 85 >=60 mL/min/1. 73m2 LAB CHEMISTRY METHOD 12/08/2024 6:18 PM [facility] Comment:Calculation based on the Chronic Kidney Disease Epidemiology Collaboration (CKD-EPI) equation refit without adjustment for race. BUN/Creatinine Ratio 21.5 LAB CHEMISTRY METHOD 12/08/2024 6:18 PM [facility] Calcium 10.0 8.5 - 10.5 mg/dL LAB CHEMISTRY METHOD 12/08/2024 6:18 PM [facility] AST (SGOT) 11 10 - 42 unit/L LAB CHEMISTRY METHOD 12/08/2024 6:18 PM [facility] ALT (SGPT) 18 10 - 60 unit/L LAB CHEMISTRY METHOD 12/08/2024 6:18 PM [facility] Alkaline Phosphatase 63 42 - 121 unit/L LAB CHEMISTRY METHOD 12/08/2024 6:18 PM [facility] Total Protein 7.1 6.0 - 8.0 g/dL LAB CHEMISTRY METHOD 12/08/2024 6:18 PM EDT [facility] Albumin 4.3 3.2 - 5.0 g/dL LAB CHEMISTRY METHOD 12/08/2024 6:18 PM EDT [facility] Total Bilirubin 0.5 0.0 - 1.4 mg/dL LAB CHEMISTRY METHOD 12/08/2024 6:18 PM EDT [facility] Blood Venous blood specimen / Unknown Venipuncture / Unknown 12/08/2024 11:53 AM EDT 12/08/2024 11:53 AM EDT us Racheal Ponce MD LAB BLOOD ORDERABLES Final Re sult [facility] [address] [place] [address], from Last 3 Months Insurance [facility] [place] [id number] [facility] Advance Directives Documents on File Type Date Recorded Patient Java Solutions Architect Expl anation Health Care Decision (hx) 10/19/2023 PO LST FORM Care Teams Molder Closed Molds Relationship Specialty Start Date End Date Racheal Ponce MD [address] [place] [address] [place] [address] PCP - General Internal Medicine 06/24/24
== END 2024-12-31 09:16 | disposition home or self-care (01) ==
LOC: HO.HOS 08:53
PROVIDERS: PCP Internal Medicine; Visit Provider Orthopaedic Surgery
DX: M25.512 Pain in left shoulder (principal)
CPT/HCPCS: 99024

== ENCOUNTER 2025-01-14 10:00 | Outpatient (RCR) | payer OTHER, SELFPAY ==
--- NOTE | 2024-12-18 10:35 | MHC.PT.EP ---
[facility] [place] [facility] [place] [facility] [place] [facility] [address] Griffin Maloney [address] [phone] F: [phone] F: [phone] F: [phone] F: [phone] Physical Therapy Plan of Care Date of Evaluation: 12/18/24 Date of Surgery: 11/21/2024 Diagnosis: s/p 11/21/2024 L shoulder insufficiency Assessment: Patient is a 64 year old female presenting to PT s/p L shoulder arthroscopy on 11/21/2024. She presents today with impairments in pain, ROM, shoulder strength, posture. Pt's current occupation is at [employer], with baseline physical activities including reaching, lifting, work, ADLs. 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 Clinical presentation today is most consistent with signs and sx associated with s/p L shoulder arthroscopy 11/21/2024 and pt will benefit from skilled PT 2 week x 4 weeks to address the following problems and impairments noted upon evaluation: pain, ROM, shoulder strength, posture. These problems limit the patient with the following functional activities: reaching, lifting, work, ADLs. The prescribed treatment plan of care is medically necessary. Co-morbidities of atrial septal defect, depression were identified and taken into considerations of plan of care. Pt was educated on HEP, role of PT, prognosis, POC. Frequency and Duration: The patient will be seen 2 x week x 4 weeks Short Term Goals: Pt will demonstrate symmetrical ROM in 2 weeks. Pt will demonstrate improved L shoulder MMT strength by 1/3 grade in 2 weeks. Pt will demonstrate improved posture as evidence by min to no cues during the session 2 weeks. Data Keyer Goals: Pt will demonstrate improved SPADI score by 13 points in 4 weeks for improved functional mobility. Pt will demonstrate ability to reach with min to no pain or limitation for return to PLOF in 4 weeks. Pt will demonstrate ability to lift with min to no pain in 4 weeks for prepare for return to work in 4 weeks. Treatment Plan: Modalities to reduce pain, spasms and effusion. Manual therapy to restore motion and function. Therapeutic exercise to improve strength and flexibility. Neuromuscular re-education for posture and balance. Therapeutic activities to return to functional activities of daily living. Electronically signed by: Loreto Fitch, PT, DPT, ATC Please sign and return to therapist. Thank you for your referral.
--- NOTE | 2025-01-14 10:55 | MHC.PT.DC ---
[facility] [place] [facility] [place] Office [place] Office [address] Griffin Maloney [address] [phone] F: [phone] F: [phone] F: [phone] F: [phone] Physical Therapy Discharge Report Diagnosis: s/p 11/21/2024 L shoulder insufficiency Date of Surgery: 11/21/2024 Date of Evaluation: 12/18/24 Date of Discharge: 01/14/25 Treatments to Date: 9 Cancellations to Date: 0 No Shows to Date: 0 Discharge Status: Improved Function Independent with HEP Discharge Summary: 01/14/2025: Pt has made progress since start of care. She is demonstrating improved function overall although she is still limited with higher ROM which will likely continue to improve with time as she returns to her regular activities. She is independent and compliant with her HEP and she understands to continue with this for nursing home gains. At this time max benefits of PT have been provided and skilled PT is no longer indicated. She is in agreement with d/c today. Electronically signed by: Loreto Fitch, PT, DPT, ATC Please sign and return to therapist. Thank you for your referral.
== END 2025-01-14 10:56 | disposition home or self-care (01) ==
LOC: HO.PTCHIC 10:00
PROVIDERS: PCP Internal Medicine; Visit Provider Physician Assistant
DX: M25.312 Other instability, left shoulder (principal); M75.42 Impingement syndrome of left shoulder; Z98.890 Other specified postprocedural states
CPT/HCPCS: 97110; 97161

== ENCOUNTER 2025-03-05 13:40 | Outpatient (AMB) | payer OTHER, SELFPAY ==
--- NOTE | 2025-03-05 13:42 | MHC.OFFVIS ---
Vital Signs 03/05/25 13:48 Height 4 ft 11 in Weight 205 lb BMI 41.4 Intake Visit Reasons: Lt Shld 11/21/24 follow up Intake Note: Noreen is a 64 year old female right hand dominant who presents mild to moderate discomfort in her left shoulder after undergoing left shoulder arthroscopic surgery on 11/21/2024. The patient states that her shoulder was recently aggravated when her dogs pulled on their leash. She denies any weakness. She continues with her home stretching program. She denies any fevers or chills. Allergies No Known Allergies Allergy (Verified 03/05/25 13:47) Medication List - Last Reconciled 03/05/25 by Ron Vilchis MD amlodipine 10 mg PO DAILY atorvastatin 40 mg PO BEDTIME fluticasone propionate 50 mcg/actuation 1 spray intranasal BID lisinopril 30 mg PO DAILY sertraline 50 mg PO DAILY [facility] Medical History Depression Hiatal hernia ASD (atrial septal defect) Elevated cholesterol HTN (hypertension) GERD (gastroesophageal reflux disease) Surgical History History of bilateral knee replacement Hx of atrial septal defect repair H/O colonoscopy Social History Patient Tobacco Use Status: Former Tobacco user Tobacco use type: Cigarette Second Hand Smoke Exposure: No Current occupational status: employed 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 Physical Exam Vital Signs: BMI result Body Mass Index 41.4 Const Other: Well-nourished well-developed very friendly female awake alert and oriented x3 in no acute distress Extrem Other: Left shoulder examination shows that the surgical incisions are well healed, no erythema, slightly decreased range of motion when compared to her right shoulder, mild discomfort with range of motion, no instability, 5/5 strength with supraspinatus testing Assessment & Plan Assessment & Plan (1) Left shoulder pain: Code(s): M25.512 - Pain in left shoulder Category: Medical Plan Ms. Carrillo continues to do well after undergoing left shoulder arthroscopic surgery on 11/21/2024. She will continue with her home stretching program to prevent stiffness. The do's and don'ts of lifting were discussed at length with the patient. She will contact me prior to her follow-up appointment in 3 months should any questions or concerns arise. Feel free to call me at any time should questions regarding her orthopedic management arise. I spent 22 minutes in reviewing the patient's records and imaging studies, seeing the patient and documenting in the medical record. Coding Level of Care Code Est Pt Level 3 (82113) Complex EM visit Add On G2211 Diagnoses Left shoulder pain M25.512
[2025-03-05 13:48] VITALS: BMI 41.4
== END 2025-03-05 13:55 | disposition home or self-care (01) ==
LOC: HO.HOS 13:41
PROVIDERS: PCP Internal Medicine; Visit Provider Orthopaedic Surgery
DX: M25.512 Pain in left shoulder (principal)
CPT/HCPCS: 99213; G2211